=== PATIENT | female | born 1940 | race Caucasian/White ===

== ENCOUNTER 2021-02-19 14:04 | Outpatient (CLI) | payer MEDICARE, OTHER, SELFPAY ==
[2021-02-19 14:28] LABS: Hematocrit 40.7 % (37.0-47.0); Hemoglobin 13.1 g/dL (12.0-15.0); Mean Corpuscular HGB Conc 32.2 g/dl (32-36); Mean Corpuscular Volume 90.2 fl (80-100); Mean Platelet Volume 9.8 fl (7.4-10.4); Platelet Count Result 305 k/mm3 (150-375); Red Blood Count 4.51 M/mm3 (4.2-5.4); Red Cell Distribution Width 13.5 % (11.5-14.5); White Blood Count 9.6 K/mm3 (4.5-10.0)
[2021-02-19 14:41] LABS: Albumin Level 4.3 g/dL (3.5-5.1); Alkaline Phosphatase 94 U/L (38-126); Anion Gap 5 mmol/L (8-16); Aspartate Amino Transferase 29 U/L (14-36); Bilirubin,Total 0.7 mg/dL (0.2-1.3); Blood Urea Nitrogen 15 mg/dL (7-17); Calcium 9.1 mg/dL (8.4-10.2); Carbon Dioxide 31 mmol/L (22-30); Chloride 102 mmol/L (98-107); Estimated Glomerular Filt Rate > 60; Glucose 90 mg/dL (65-110); Potassium 4.5 mmol/L (3.4-5.0); Sodium 138 mmol/L (137-145)
[2021-02-19 15:46] LABS: Folic Acid 9.5 ng/mL (2.76->20)
[2021-02-19 15:52] LABS: Alanine Aminotransferase < 4 U/L (4-35)
== END 2021-02-19 14:05 | disposition home or self-care (01) ==
PROVIDERS: PCP Physician Assistant; Visit Provider Physician Assistant
DX: R53.83 Other fatigue (principal)
CPT/HCPCS: 36415; 80053; 82607; 82746; 84443; 85027

== ENCOUNTER 2022-01-29 07:16 | Inpatient (IN) | payer MEDICARE, OTHER, SELFPAY ==
[2022-01-29] VITALS (53 sets, daily range): BP systolic 100–127; BP diastolic 47–70; PULSE 68–98; RESP 14–32; TEMP 36.6–36.8; O2SAT 96–100
--- NOTE | ~2022-01-29 | CT_ITS ---
. EXAMINATION: CT biopsy lung w/imaging DATE: 02/03/2022 14:27 INDICATION: Left lung lower lobe nodule. TECHNIQUE: The procedure including the risks, benefits, and alternatives and possibility of chest tub e placement were discussed with the patient. Risks discussed included infection, hemorrhage, and pneu mothorax. The patient understood the risks and agreed to proceed. The patient was placed prone. The skin overlying the left lung was prepped and draped in sterile fashion. Anesthetic was administered with 1% lidocaine subcutaneously. A 19 gauge outer needle was advanced under CT guidance to the lesi on of interest. A 20 gauge core biopsy needle was then used to obtain 3 core biopsy specimens. The ne edle was removed and the entry site was cleaned and dressed. The mA was adjusted according to patient size. Iterative reconstruction technique was employed. The dose-length product was 151.69 mGy-cm. T here were no immediate complications. FINDINGS: CT images demonstrate the outer needle tip adjacent to a 2.6 cm nodule in left lung lower l obe. IMPRESSION: 1. CT-guided core needle biopsy of a nodule in left lung lower lobe. Reviewed, dictated and finalized at location A.
--- NOTE | ~2022-01-29 | XR_ITS ---
EXAMINATION: XR chest 1V portable DATE: 02/03/2022 15:35 INDICATION: Status post left lung biopsy TECHNIQUE: frontal view of the chest was obtained. COMPARISON: 02/03/2022 at 2:19 PM FINDINGS: Persistent masslike opacities in the left lower lung zone and left infrahilar region suspicious for p rimary bronchogenic carcinoma and metastatic disease. Skin folds project over the bilateral mid to lo wer lung zones. No pneumothorax or pleural effusion. Heart size is normal. Right paratracheal widenin g and increased density at the AP window likely related to metastatic mediastinal lymphadenopathy. IMPRESSION: 1. No pneumothorax post percutaneous biopsy of a left lower lobe mass concerning for primary bronchog enic carcinoma. 2. Left infrahilar mass and mediastinal lymphadenopathy suspicious for metastatic disease. Reviewed, dictated and finalized at location A. IMPRESSION: 1. No pneumothorax post percutaneous biopsy of a left lower lobe mass concernin g for primary bronchogenic carcinoma. 2. Left infrahilar mass and mediastinal lymphadenopathy suspicious for metastat ic disease.
--- NOTE | ~2022-01-29 | XR_ITS ---
EXAMINATION: XR chest 1V portable DATE: 02/03/2022 17:39 INDICATION: Status post left lung percutaneous biopsy TECHNIQUE: COMPARISON: Chest radiograph dated 02/03/2022 at 3:23 PM FINDINGS: Mild elevation the left hemidiaphragm. Persistent masslike opacities in the left lower lung zone and left infrahilar region suspicious for primary bronchogenic carcinoma and metastatic disease. Skin fol ds project over the bilateral mid to lower lung zones. No pneumothorax or pleural effusion. Heart siz e is normal. Right paratracheal widening and increased density at the AP window likely related to met astatic mediastinal lymphadenopathy. IMPRESSION: 1. No pneumothorax post percutaneous biopsy of a left lower lobe mass concerning for primary bronchog enic carcinoma. 2. Left infrahilar mass and mediastinal lymphadenopathy suspicious for metastatic disease. Reviewed, dictated and finalized at location A. IMPRESSION: 1. No pneumothorax post percutaneous biopsy of a left lower lobe mass concernin g for primary bronchogenic carcinoma. 2. Left infrahilar mass and mediastinal lymphadenopathy suspicious for metastat ic disease.
--- NOTE | ~2022-01-29 | CT_ITS ---
EXAMINATION: CTA chest PE protocol DATE: 01/31/2022 10:49 CDT INDICATION: Shortness of breath. Chest tightness. TECHNIQUE: Computed tomographic angiography (CTA) of the chest was performed with 100 mL Omnipaque-35 0 intravenous contrast. The dose-length product was 147.58 mGy-cm. Maximum intensity projection 3D-re constructions of the aorta and other arteries were constructed by the technologist on a separate work station. Automated exposure control and iterative reconstruction technique were employed. COMPARISON: CT dated 07/25/2018. FINDINGS: There is a large left hilar/infrahilar soft tissue mass with encasement of the left pulmona ry artery and mainstem bronchus. There is partial if not complete occlusion of the left lower lobe br onchus. There is mediastinal lymphadenopathy involving the right paratracheal and AP window locations . There is a filling defect in right lower lobe segmental and subsegmental pulmonary artery, consiste nt with pulmonary embolism, small thrombus burden. Heart size normal. There is abnormal soft tissue i nvolving the left pulmonary vein, likely tumor invasion. There is a cluster of nodules in the left lo wer lobe, largest measuring 2.8 x 2.0 cm, likely metastatic disease. There are multiple additional sm all nodules in the upper lobes, also likely metastatic disease. No pneumothorax. Trace left pleural e ffusion. The upper abdomen is unremarkable. IMPRESSION: 1. Filling defect in right lower lobe segmental/subsegmental pulmonary artery, consistent with pulmon benson embolism, small thrombus burden. 2: Left lower lobe nodule measuring 2.8 x 2 cm, compatible with bronchogenic carcinoma or metastatic disease. Multiple additional smaller nodules are present in the upper lobes. There is abnormal congl omerate soft tissue involving the left hilum and infrahilar locations as well as the mediastinum, con sistent with metastatic disease. There is soft tissue involving the left pulmonary vein, likely tumor invasion. There is encasement with occlusion of the left lower lobe bronchus and narrowing of the le ft lower lobe pulmonary artery. 3: Small left pleural effusion. Reviewed, dictated and finalized at location A. IMPRESSION: 1. Filling defect in right lower lobe segmental/subsegmental pulmonary artery, consistent with pulmonary embolism, small thrombus burden. 2: Left lower lobe nodule measuring 2.8 x 2 cm, compatible with bronchogenic c arcinoma or metastatic disease. Multiple additional smaller nodules are present in the upper lobes. There is abnormal conglomerate soft tissue involving the l eft hilum and infrahilar locations as well as the mediastinum, consistent with metastatic disease. There is soft tissue involving the left pulmonary vein, lik gilberto tumor invasion. There is encasement with occlusion of the left lower lobe b ronchus and narrowing of the left lower lobe pulmonary artery. 3: Small left pleural effusion.
--- NOTE | ~2022-01-29 | XR_ITS ---
XR chest 1V 02/03/2022 14:24 Indication: Postleft lung biopsy Procedure: AP chest Comparison: Comparison to multiple prior studies sequentially, with oldest reviewed study dated 01/29. Findings: There are masses in the left infrahilar and left lower lobe locations, suspicious for bronc hogenic carcinoma or metastatic disease. No pneumothorax. Heart size normal. There is abnormal soft t issue in the AP window, consistent with mediastinal lymphadenopathy. No acute osseous abnormality. Impression: 1: No pneumothorax identified post biopsy. 2: Left lung masses and mediastinal lymphadenopathy, suspicious for bronchogenic carcinoma and/or met astatic disease. Reviewed, dictated and finalized at location B. Impression: 1: No pneumothorax identified post biopsy. 2: Left lung masses and mediastinal lymphadenopathy, suspicious for bronchogeni c carcinoma and/or metastatic disease.
--- NOTE | ~2022-01-29 | US_ITS ---
US venous doppler [facility] DATE: 01/31/2022 16:11 INDICATION: Pulmonary embolism TECHNIQUE: Real-time and color flow imaging and Doppler analysis of the veins of the lower extremitie s COMPARISON: None FINDINGS: There is spontaneous and phasic flow and normal augmentation and color flow signal and norm al compression of the deep veins of both lower extremities. IMPRESSION: No evidence of deep venous thrombosis of the lower extremities Reviewed, dictated and finalized at Location A. Reviewed, dictated and finalized at location A.
--- NOTE | ~2022-01-29 | XR_ITS ---
XR chest 2V DATE: 01/29/2022 08:21 INDICATION: Shortness of breath TECHNIQUE: AP and lateral chest COMPARISON: 07/25/2018 CT chest FINDINGS: Bilateral hyperinflation, increased retrosternal airspace, relative flattening of the diaph ragm, consistent with COPD. There is patchy consolidation in the left lower lung likely due to pneumonia. Normal heart size. Aortic arch calcification. Osteopenia. IMPRESSION: Patchy infiltrate, left lower lung, likely due to pneumonia COPD Reviewed, dictated and finalized at location B.
--- NOTE | ~2022-01-29 | XR_ITS ---
XR chest 1V portable 01/31/2022 09:00 Indication: Shortness of breath and chest pain Procedure: AP portable chest Comparison: 01/29/2022 Findings: There is a 3.2 cm left infrahilar mass. There is a cluster of nodules in the left lower tho rax. There is atherosclerosis of the aorta. Heart size normal. There is biapical pleural thickening/s carring. Small left pleural effusion versus pleural thickening. Generalized osteopenia. Impression: 1: Left infrahilar mass measuring 3.2 cm with adjacent clustered parenchymal nodules. Follow-up CT ch est recommended. Cannot exclude bronchogenic carcinoma. Reviewed, dictated and finalized at location A. Impression: 1: Left infrahilar mass measuring 3.2 cm with adjacent clustered parenchymal no dules. Follow-up CT chest recommended. Cannot exclude bronchogenic carcinoma.
--- NOTE | ~2022-01-29 | US_ITS ---
EXAMINATION: US carotid duplex BI DATE: 01/31/2022 11:15 INDICATION: Shortness of breath. Orthostatic hypotension. TECHNIQUE: Grayscale, color Doppler, and pulsed Doppler images of the cervical carotid arteries were obtained. The degree of vessel stenosis is placed in one of the following categories: normal, <50%, 5 0-69%, >=70% but less than near-occlusion, near-occlusion, or total occlusion. Note that percent sten osis relative to normal distal artery lumen diameter is indirectly measured from velocity measurement s as described by Evaristo, et al. Radiology 2003; 229:340-346. Notes: Normal: Peak systolic velocity <125 centimeters/sec and no plaque <50%. Peak systolic velocity <125 ( EDV <40; ICA/CCA PSV ratio <2.0; used these factors only a tandem lesions or low cardiac output or co ntralateral disease) 50-69 %: PSV 125-230 (EDV 40-100; ratio 2-4) >= 70% but less than near occlusion: PSV greater than 230 (EDV > 100; ratio> 4.0) Near Occlusion: PSV that is variable; markedly narrowed lumen Occlusion: Absent flow on color/spectral Doppler and no lumen on rick scale. COMPARISON: None. FINDINGS: RIGHT: The right common carotid artery (CCA) peak systolic velocity (PSV) is 83 cm/s. The right internal car otid artery (ICA) PSV is 99 cm/s. The right ICA end-diastolic velocity (EDV) is 24 cm/s. The right IC A/CCA PSV ratio is 1.2. The external carotid artery (ECA) PSV is 116 cm/s. There is antegrade flow in the right vertebral artery. LEFT: The left CCA PSV is 107 cm/s. The left ICA PSV is 89 cm/s. The left ICA EDV is 25 cm/s. The left ICA/ CCA PSV ratio is 0.8. The ECA PSV is 98 cm/s. There is antegrade flow in the left vertebral artery. IMPRESSION: 1. Less than 50% stenosis in the right internal carotid artery by sonographic criteria. 2. Less than 50% stenosis in the left internal carotid artery by sonographic criteria. Reviewed, dictated and finalized at location A. IMPRESSION: 1. Less than 50% stenosis in the right internal carotid artery by sonographic c riteria. 2. Less than 50% stenosis in the left internal carotid artery by sonographic cr volodymyria.
--- NOTE | 2022-01-29 07:41 | ECG_ITS ---
Measurements Intervals [place] Rate: 69 P: 76 AK: 143 QRS: -79 QRSD: 110 T: 55 QT: 389 QTc: 419 Interpretive Statements SINUS RHYTHM RIGHT BUNDLE BRANCH BLOCK LEFT ANTERIOR FASCICULAR BLOCK BASELINE ARTIFACT- AVR, AVL, AVF, V4 ABNORMAL ECG NO PREVIOUS ECG AVAILABLE FOR COMPARISON Electronically Signed On 01-29-2022 8:02:24 CDT by Armani Gonsalves D.O.
--- NOTE | 2022-01-29 07:45 | PC.NURSE ---
Assumed care of pt. at this time. report from TONY Mora
[2022-01-29 08:08] LABS: Basophils Percent Auto 0.3 % (0.2-1.2); Eosinophils Absolute Auto 0.2 K/mm3 (0-0.3); Eosinophils Percent Auto 3.2 % (0-4.4); Hematocrit 31.3 % (37.0-47.0); Hemoglobin 9.8 g/dL (12.0-15.0); Immature Granulocyte Absolute 0.03 K/mm3 (0.00-0.031); Immature Granulocyte Percent A 0.5 % (0-0.5); Lymphocytes Absolute Auto 1.68 K/mm3 (0.9-3.2); Mean Corpuscular HGB Conc 31.3 g/dl (32-36); Mean Corpuscular Hemoglobin 26.6 pg (26-34); Mean Corpuscular Volume 84.8 fl (80-100); Mean Platelet Volume 10.1 fl (7.4-10.4); Monocytes Absolute Auto 0.6 K/mm3 (0.1-0.6); Monocytes Percent Auto 10.3 % (2.6-8.5); Neutrophils Absolute Auto 3.5 K/mm3 (1.3-6.7); Neutrophils Percent Auto 57.7 % (45.5-73.1); Platelet Count Result 302 k/mm3 (150-375); Red Blood Count 3.69 M/mm3 (4.2-5.4); Red Cell Distribution Width 15.9 % (11.5-14.5)
[2022-01-29 08:18] LABS: Alanine Aminotransferase 9 U/L (6-35); Albumin Level 3.2 g/dL (3.5-5.1); Alkaline Phosphatase 62 U/L (38-126); Anion Gap 9 mmol/L (8-16); Aspartate Amino Transferase 31 U/L (14-36); Bilirubin,Total 0.6 mg/dL (0.2-1.3); Blood Urea Nitrogen 7 mg/dL (7-17); Calcium 8.7 mg/dL (8.4-10.2); Carbon Dioxide 21 mmol/L (22-30); Chloride 104 mmol/L (98-107); Estimated CRCL calculation 62 ml/min; Estimated Glomerular Filt Rate > 60; Glucose 93 mg/dL (65-110); Potassium 4.1 mmol/L (3.4-5.0); Sodium 134 mmol/L (137-145)
[2022-01-29 09:28] LABS: NT Pro B Type Natriuretic Pept 362 pg/mL (5-100); Troponin I < 0.012 ng/mL (0.000-0.034)
[2022-01-29 09:58] LABS: SARS-CoV-2 RNA PCR Negative
--- NOTE | 2022-01-29 12:03 | ED.GENADULT ---
HPI - General Adult General Chief complaint: Shortness of Breath/Dyspnea Stated complaint: SOB Time Seen by Provider: 01/29/22 07:52 History of Present Illness HPI narrative: This is an 81-year-old female presenting [facility] for shortness of breath. She went to use the restroom and then while she was on the bathroom she started to have difficulty breathing. Patient does not remember the experience very well and cannot provide very many Details. She was then sent to the ER for further evaluation. Patient has no complaints at this time. She denies fever, chills, chest pain, difficulty breathing, abdominal pain, urinary symptoms or diarrhea. Related Data Allergies Allergy/AdvReac Type Severity Reaction Status Date / Time tramadol AdvReac Intermediate NAUSEA, Verified 09/30/21 14:11 DIFFICULTY BREATHING Review of Systems Review of Systems: CONSTITUTIONAL: Denies night sweats. EYES: No eye pain ENT: Denies rhinorrhea CARDIOVASCULAR: Denies palpitations RESPIRATORY: Denies hemoptysis GASTROINTESTINAL: Denies hematemesis GENITOURINARY: Denies hematuria. SKIN: Denies rash MUSCULOSKELETAL: Denies myalgia. NEUROLOGIC: Denies weakness. PSYCHIATRIC: Denies delusions [facility] Past Medical History Medical History (Updated 01/29/22 @ 12:22 by Raf Loja MD) Anxiety COPD (chronic obstructive pulmonary disease) Other specified depressive episodes Parkinsons disease Social History Social History Smoking status: Former smoker Second hand tobacco smoke exposure: No Smoking end date: 05/10/14 Alcohol intake: never Substance use: never Exam Narrative: APPEARANCE: No apparent distress. Patient is pleasant polite during the interview. She was slightly hard of hearing. Head atraumatic. EYES: PERRLA/EOMI, NOSE: Normal no drainage NECK: Supple, Trachea midline RESPIRATORY: CTAB, No increased work of breathing. No wheezing or rhonchi CARDIOVASCULAR: S1S2 appreciated ABDOMINAL: Soft, nontender, nondistended, MUSCULOSKELETAl: No obvious deformities NEURO: Alert. Moving 4/4 extremities SKIN:: Warm, dry. Normal color PSYCHIATRIC: Normal affect Course Vital Signs Vital signs: Vital Signs Temperature 97.8 F 01/29/22 07:20 Pulse Rate 75 01/29/22 07:20 Respiratory Rate 28 H 01/29/22 07:20 Blood Pressure 127/57 L 01/29/22 07:20 Pulse Oximetry 100 01/29/22 07:20 Oxygen Delivery Room Air 01/29/22 07:20 Temperature 97.8 F 01/29/22 07:20 Pulse Rate 80 01/29/22 10:00 Respiratory Rate 20 01/29/22 10:00 Blood Pressure 105/49 L 01/29/22 08:03 Pulse Oximetry 99 01/29/22 10:00 Oxygen Delivery Room Air 01/29/22 07:24 Medical Decision Making MDM Narrative Medical decision making narrative: this is an 81-year-old female presenting ED from a prison for difficulty breathing. We will do basic lab work including troponins to evaluate for an acute cardiac event. Also we will monitor the patient and see if her symptoms recur. Laboratory showed a hemoglobin of 9.8. This is several points lower than her last hemoglobin over 1 year ago. She has no evidence of bleeding at this time. This can be trended. Basic metabolic panels within acceptable limits. Patient has a minor elevation in her BNP at 362. She does not appear clinically fluid overloaded. COVID was negative. Chest x-ray was significant for a left lower lobe pneumonia. Due to the patient's advanced age and multiple comorbidities she will admit to hospital for IV antibiotics. Differential Diagnosis Differential Diagnosis: Pneumonia, ACS, panic attack Vital Signs Vital Signs: Vital Signs Temperature 97.8 F 01/29/22 07:20 Pulse Rate 75 01/29/22 07:20 Respiratory Rate 28 H 01/29/22 07:20 Blood Pressure 127/57 L 01/29/22 07:20 Pulse Oximetry 100 01/29/22 07:20 Oxygen Delivery Room Air 01/29/22 07:20 Te
--- NOTE | 2022-01-29 14:02 | PM.IMHP ---
H&P: HPI History of Present Illness Date/Time: 01/29/22 14:02 Chief Complaint: Shortness of breath Narrative: This is an 81-year-old female patient who has a history of COPD. She currently is in a rehab facility. The patient denies using oxygen at home. The patient came from the [place] [facility] complaining of shortness of breath. The patient went to the restroom there and while she was sitting in the bathroom she started having breathing problems. The patient was sent to the emergency room to be further evaluated the patient stated that she recalls having oxygen placed on her at the [place] [facility]. Currently she is on room air. She denies any fever, chills, chest pain or abdominal pain. She has no diarrhea. Her H and H is low at 9.8 and 31.3 which is lower than a year ago. Her sodium is slightly low at 134. She was negative for COVID. Chest x-ray was read as patchy infiltrate, left lower lung, likely due to pneumonia, COPD. Patient was started on azithromycin and Rocephin for community-acquired pneumonia. The patient is being admitted to inpatient status on the date of service of 01/29/2022 Review of Systems Review of Systems: See HPI All systems reviewed & are unremarkable except as noted in HPI and below Constitutional: Constitutional: Reports as per HPI and Reports no additional constitutional complaints Eyes: Eyes: Reports as per HPI and Reports no additional eye complaints ENT: Reports system reviewed and no additional complaints, except as documented and Reports Normal hearing present Cardiovascular: Cardiovascular: Reports no additional cardiovascular complaints Respiratory: Respiratory: Reports no additional respiratory complaints and Reports no additional respiratory complaints Gastrointestinal: Gastrointestinal: Reports as per HPI and Reports no additional gastrointestinal complaints Musculoskeletal: Musculoskeletal: Reports no additional musculoskeletal complaints Integumentary/Breasts: Skin/Breast: Reports system reviewed and no additional complaints, except as docu and Reports as per HPI Neurologic: Reports system reviewed and no additional complaints, except as documented, Reports as per HPI and Reports Normal hearing present Psychiatric: Psychiatric: Reports no additional psychiatric complaints and Reports as per HPI Endocrine: Endocrine: Reports no additional endocrine complaints Hematologic/Lymphatic: Hematologic/Lymphatic: Reports no additional hematologic/lymphatic complaints Allergic/Immunologic: Allergic/Immunologic: Reports no additional allergic/immunologic complaints [facility] Past Medical History Medical History (Updated 01/29/22 @ 15:12 by Allie Garcia NP) Anxiety COPD (chronic obstructive pulmonary disease) Depression with anxiety Other specified depressive episodes Parkinsons disease Surgical History Surgical History H/O cataract extraction H/O section H/O: hysterectomy Family History Family History Daughter Throat cancer AA (alcohol abuse) Father Cancer Sibling Cancer Social History Social History (Updated 01/29/22 @ 15:03 by Allie Garcia NP) Social History: The patient is . She had 3 children but 2 . One daughter from throat cancer and 1 son from drowning. She was a [place] . 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 She is currently in a rehab facility. She is not sure of where her surviving son is at this point. She does not have a durable power claim attorney for healthcare. She is a former smoker and does not use any alcohol marijuana or illicit drugs. Code status full code Smoking status: Former smoker Second hand tobacco smoke exposure: No Smoking end date: 05/10/14 Alcohol intake: never Substance use: never Meds Home Medications and Allergies Home Medications
--- NOTE | 2022-01-29 14:47 | PC.NURSE ---
updated pt. family member on pt. status.
[2022-01-29 16:19] LABS: Reticulocyte Hemoglobin Conten 30.6 pg (28.2-35.7); Reticulocyte Percent 1.71 % (0.7-4.3); Reticulocytes Absolute 0.07 B/L (32.2-175.7)
[2022-01-29 16:31] LABS: Lactic Acid Reflex 2.8 mmol/L (0.7-2.0)
--- NOTE | 2022-01-29 16:43 | ADMGEN ---
This patient, Sujatha Marie, was admitted to Medical Room 342-01. Patient/family oriented to hospital policies and general routines including ID bracelet, bed and alarms, visiting hours, pain management, procedures, bathroom and other care routines, personal items, smoking policy, room service/diet, and visiting hours. Information on how to activate the Rapid Response Team has been discussed. Patient/Family are encouraged to report perceived risks to care and to ask questions if they do not understand what they are told or what they should do.
[2022-01-29 16:44] LABS: Transferrin 129 mg/dL (206-381)
[2022-01-29] MEDS: methylPREDNISolone SOD SUCC 40 MG VIAL IV PUSH (17:04)
[2022-01-29 17:46] LABS: Folic Acid 4.3 ng/mL (2.76->20)
[2022-01-29 19:12] LABS: Reflex Lactic Acid Yes or No Add Lactic
[2022-01-29] MEDS: SODIUM BICARBONATE TAB 650 MG TABLET PO (19:20)
[2022-01-29] MEDS: CARBIDOPA/LEVODOPA 25/100 MG TABLET 1 TABLET PO (19:20)
[2022-01-29] MEDS: DICYCLOMINE HCL 10 MG CAPSULE PO (19:20)
[2022-01-29 19:46] LABS: Lactic Acid 1.1 mmol/L (0.7-2.0)
[2022-01-29 19:50] LABS: Iron 50 ug/dL (37-170)
[2022-01-29 19:59] LABS: Percent Iron Saturation 27 % (20-50)
[2022-01-29] MEDS: ALBUTEROL SULFATE NEB 2.5 MG/3 ML INH INHALATION (20:08)
[2022-01-29] MEDS: IPRATROPIUM BR 0.02% INH SOLN 0.5 MG/2.5 ML VIAL INHALATION (20:08)
[2022-01-29] MEDS: LORATADINE 10 MG TABLET PO (20:27)
[2022-01-29] MEDS: MIRTAZAPINE 15 MG TABLET PO (20:31)
[2022-01-30] VITALS (7 sets, daily range): BP systolic 102–120; BP diastolic 45–56; PULSE 60–102; RESP 18–20; TEMP 36.6–36.7; O2SAT 94–98
[2022-01-30] MEDS: methylPREDNISolone SOD SUCC 40 MG VIAL IV PUSH ×2 (00:43→06:43)
--- NOTE | 2022-01-30 02:45 | PCRCNOTE ---
PT STATED AT 1999 ON 01/29 THAT SHE DID NOT WANT WOKEN UP FOR 0200 TREATMENT. PT ADVISED TO CALL IF IN NEED OF TREATMENT. RN INFORMED.
[2022-01-30 05:37] LABS: Hematocrit 29.8 % (37.0-47.0); Hemoglobin 9.7 g/dL (12.0-15.0); Immature Granulocyte Absolute 0.02 K/mm3 (0.00-0.031); Immature Granulocyte Percent A 0.6 % (0-0.5); Lymphocytes Absolute Auto 0.58 K/mm3 (0.9-3.2); Lymphocytes Percent Auto 16.7 % (18.3-44.2); Mean Corpuscular HGB Conc 32.6 g/dl (32-36); Mean Corpuscular Hemoglobin 26.9 pg (26-34); Mean Corpuscular Volume 82.8 fl (80-100); Mean Platelet Volume 9.6 fl (7.4-10.4); Monocytes Absolute Auto 0.1 K/mm3 (0.1-0.6); Monocytes Percent Auto 1.7 % (2.6-8.5); Neutrophils Absolute Auto 2.8 K/mm3 (1.3-6.7); Platelet Count Result 319 k/mm3 (150-375); Red Cell Distribution Width 15.9 % (11.5-14.5); White Blood Count 3.5 K/mm3 (4.5-10.0)
[2022-01-30 05:50] LABS: Alanine Aminotransferase 11 U/L (6-35); Albumin Level 3.4 g/dL (3.5-5.1); Alkaline Phosphatase 61 U/L (38-126); Anion Gap 10 mmol/L (8-16); Aspartate Amino Transferase 29 U/L (14-36); Bilirubin,Total 0.5 mg/dL (0.2-1.3); Blood Urea Nitrogen 9 mg/dL (7-17); CRP 0.9 mg/dL (<1.0); Calcium 8.7 mg/dL (8.4-10.2); Carbon Dioxide 20 mmol/L (22-30); Chloride 101 mmol/L (98-107); Estimated CRCL calculation 76 ml/min; Estimated Glomerular Filt Rate > 60; Glucose 140 mg/dL (65-110); Lactate Dehydrogenase 219 U/L (120-246); Magnesium 1.8 mg/dL (1.6-2.3); Potassium 4.2 mmol/L (3.4-5.0); Sodium 131 mmol/L (137-145)
[2022-01-30 06:26] LABS: Thyroid Stimulating Hormone Reflex 0.959 uIU/mL (0.465-4.68)
[2022-01-30] MEDS: ALBUTEROL SULFATE NEB 2.5 MG/3 ML INH INHALATION ×2 (07:55→15:04)
[2022-01-30] MEDS: IPRATROPIUM BR 0.02% INH SOLN 0.5 MG/2.5 ML VIAL INHALATION (07:55)
[2022-01-30] MEDS: ENOXAPARIN 40 MG/0.4 ML SYRINGE SUB-Q (09:16)
[2022-01-30] MEDS: PANTOPRAZOLE 40 MG TABLET PO (09:16)
[2022-01-30] MEDS: DICYCLOMINE HCL 10 MG CAPSULE PO ×2 (09:16→16:39)
[2022-01-30] MEDS: FERROUS SULFATE 324 MG TABLET PO (09:16)
[2022-01-30] MEDS: CARBIDOPA/LEVODOPA 25/100 MG TABLET 1 TABLET PO ×3 (09:16→16:39)
[2022-01-30] MEDS: LORATADINE 10 MG TABLET PO ×2 (09:17→19:50)
[2022-01-30] MEDS: FLUTICASONE PROPIONATE 0.05% NA SPR 16 GM BTL (*BKC) 2 SPRAY NASAL (09:17)
[2022-01-30] MEDS: ESCITALOPRAM OXALATE 5 MG TABLET PO (09:17)
[2022-01-30] MEDS: SODIUM BICARBONATE TAB 650 MG TABLET PO ×2 (09:17→16:39)
--- NOTE | 2022-01-30 09:45 | PM.IMPN ---
Progress Note: A&P Assessment and Plan (1) Pneumonia: Code(s): J18.9 - Pneumonia, unspecified organism Status: Acute Assessment and Plan: -Chest xray indicated PNA and COPD -Continue Azithromycin Rocephin were started -COVID was negative -duo nebs -sputum culture has been ordered -Trend chest xray -Supplemental oxygen, titrate to maintain SPO2 >90% (2) Anemia: Code(s): D64.9 - Anemia, unspecified Status: Acute Assessment and Plan: -H/H 9.7/29.8 -anemia panel iron 50, TIBC 182, % sat 29, Transferrin 129, Ferritin 192, B12 267, Folate 4.3 -No supplementation indicated -Continue ferrous sulfate 325mg PO Daily -check stool for occult blood (3) COPD (chronic obstructive pulmonary disease): Code(s): J44.9 - Chronic obstructive pulmonary disease, unspecified Status: Chronic Assessment and Plan: -Chest xray indicated COPD -continue with duo nebulizer treatments -continue with Solu-Medrol, decrease to 40mg IV Q12H -Azithromycin and Ceftriaxone continued -Sputum culture ordered -Could be in acute exacerbation (4) Depression with anxiety: Code(s): F41.8 - Other specified anxiety disorders Status: Acute Assessment and Plan: -continue with alprazolam -continue with home medications once her medication reconciliation has been completed. (5) Parkinsons disease: Code(s): G20 - Parkinson's disease Status: Chronic Assessment and Plan: -continue with carbidopa levodopa (6) Anxiety: Code(s): F41.9 - Anxiety disorder, unspecified Status: Chronic Assessment and Plan: -continue with alprazolam Time Spent With Patient Time with patient: Greater than 35 minutes Subjective Date/time seen: 01/30/22944 Interval history: 01/30/22944 Patient is really down today. She is really upset because she has been doing so good at rehab. She also stated that the breathing treatments are causing her to be a little nauseous because they stink she says. She is doing ok currently, She denies any cough, chest pain, weakness, fever, sweats or chills. She seems to be doing well today will hope that she would be able to DC tomorrow or Wednesday. 01/29/22? 14:02 This is an 81-year-old female patient who has a history of COPD.? She currently is in a rehab facility.? The patient denies using oxygen at home.? The patient came from the shelter complaining of shortness of breath.? The patient went to the restroom there and while she was sitting in the bathroom she started having breathing problems.? The patient was sent to the emergency room to be further evaluated the patient stated that she recalls having oxygen placed on her at the shelter.? Currently she is on room air.? She denies any fever, chills, chest pain or abdominal pain.? She has no diarrhea.? Her H and H is low at 9.8 and 31.3 which is lower than a year ago.? Her sodium is slightly low at 134.? She was negative for COVID.? Chest x-ray was read as patchy infiltrate, left lower lung, likely due to pneumonia, COPD.? Patient was started on azithromycin and Rocephin for community-acquired pneumonia.? The patient is being admitted to inpatient status on the date of service of 01/29/2022 Review of Systems Review of Systems: All systems reviewed & are unremarkable except as noted in HPI and below Exam Const: General: cooperative, comfortable, no acute distress, well developed, alert, awake and Physically active Nutritional Appearance: thin Orientation/consciousness: oriented to person, oriented to place, oriented to time and patient oriented x3 Limitations: no limitations HENMT: Head: normal to inspection, No palpable skull fracture present, normocephalic and atraumatic Ears: hearing grossly normal bilaterally, external ears normal and TM's normal bilaterally General nose exam: Normal external nose present and Normal n
[2022-01-30] MEDS: ALPRAZolam (*CRX) 0.25 MG TABLET PO (19:50)
[2022-01-30] MEDS: MIRTAZAPINE 15 MG TABLET PO (19:50)
[2022-01-31] VITALS (11 sets, daily range): BP systolic 86–119; BP diastolic 52–71; PULSE 68–108; RESP 16–28; TEMP 36.1–36.7; O2SAT 92–97
--- NOTE | 2022-01-31 | ECHO_ITS ---
Patient Info Name: Sujatha Marie Age: 81 years : 1940 Gender: Female Ht: 65 in Wt: 119 lbs BSA: 1.57 m2 HR: 101 bpm BP: 110 / 52 mmHg Heart Rhythm: Sinus Rhythm, Tachycardia Technical Quality: Fair Exam Date: 01/31/2022 2:38 PM Exam Location: [facility] Pulmonary Exam Room: 342 Patient Status: Inpatient Admit Date: 01/29/2022 Staff Ordering Physician: Osito Lloyd Production Operations Inspector: Comfort Taylor RDCS Attending Provider: Chase Altman MD Referring Physician: Gabino GRIMALDO; Exam Type: CA echo doppler color flow Study Info Indications - PE SOB Complete two-dimensional, color flow and Doppler transthoracic echocardiogram is performed. Summary 1. Complete two-dimensional, color flow and Doppler transthoracic echocardiogram is performed. 2. Normal left ventricular size and thickness with hyperdynamic contractility of all segments. Ejection fraction greater than 75%. Diastolic dysfunction is present. 3. Normal right ventricular size and contractility. 4. There is mild tricuspid valve regurgitation. 5. Mild pulmonary hypertension, estimated pulmonary arterial systolic pressure is 42 mmHg. 6. There is mild aortic atherosclerosis of the abdominal aorta. 7. Sinus tachycardia. Left Ventricle Left ventricular chamber dimension is normal. Left ventricular systolic function is hyperdynamic, estimated at >70%. There is no increased left ventricular wall thickness. Left ventricular septal wall motion is normal. The left ventricular diastolic function is abnormal. Right Ventricle Right ventricular chamber dimension is normal. Right ventricular systolic function is normal. Left Atria Left atrial chamber dimension is normal. Right Atria Right atrial chamber dimension is normal. Aortic Valve The aortic valve is trileaflet. There is no aortic valve sclerosis. There is no aortic valve stenosis. There is no aortic valve regurgitation. Pulmonic Valve The pulmonic valve is normal. There is no pulmonic valve stenosis. There is no pulmonic regurgitation. Mitral Valve The mitral valve has normal leaflets. There is no mitral valve stenosis. There is no mitral valve regurgitation. Tricuspid Valve The tricuspid valve leaflets are normal. There is no significant tricuspid valve stenosis. There is mild tricuspid valve regurgitation. Mild pulmonary hypertension, estimated pulmonary arterial systolic pressure is 42 mmHg. Pericardium/Pleural The pericardium appears normal. There is no pericardial effusion. Inferior Vena Cava Normal inferior vena cava with >50% collapse upon inspiration consistent with Empty right atrial pressure, 10 mmHg. Aorta The aortic root size at the sinus of Valsalva is normal. The prox ascending aorta size is normal. There is mild aortic atherosclerosis of the abdominal aorta. Left Ventricular Outflow Tract Name Value Normal LVOT 2D LVOT Diameter 2.0 cm LVOT Doppler LVOT Peak Gradient 6 mmHg LVOT Mean Gradient 3 mmHg LVOT VTI 19 cm
[2022-01-31 05:58] LABS: Basophils Percent Auto 0.1 % (0.2-1.2); Eosinophils Percent Auto 0.4 % (0-4.4); Hematocrit 28.5 % (37.0-47.0); Hemoglobin 9.1 g/dL (12.0-15.0); Immature Granulocyte Absolute 0.03 K/mm3 (0.00-0.031); Immature Granulocyte Percent A 0.4 % (0-0.5); Lymphocytes Absolute Auto 1.88 K/mm3 (0.9-3.2); Lymphocytes Percent Auto 23.1 % (18.3-44.2); Mean Corpuscular HGB Conc 31.9 g/dl (32-36); Mean Corpuscular Hemoglobin 26.5 pg (26-34); Mean Corpuscular Volume 83.1 fl (80-100); Mean Platelet Volume 9.7 fl (7.4-10.4); Monocytes Absolute Auto 0.8 K/mm3 (0.1-0.6); Monocytes Percent Auto 10.1 % (2.6-8.5); Neutrophils Absolute Auto 5.4 K/mm3 (1.3-6.7); Neutrophils Percent Auto 65.9 % (45.5-73.1); Platelet Count Result 314 k/mm3 (150-375); Red Blood Count 3.43 M/mm3 (4.2-5.4); Red Cell Distribution Width 16.5 % (11.5-14.5); White Blood Count 8.1 K/mm3 (4.5-10.0)
[2022-01-31 06:13] LABS: Alanine Aminotransferase 11 U/L (6-35); Albumin Level 3.1 g/dL (3.5-5.1); Alkaline Phosphatase 54 U/L (38-126); Anion Gap 9 mmol/L (8-16); Aspartate Amino Transferase 30 U/L (14-36); Bilirubin,Total 0.3 mg/dL (0.2-1.3); Blood Urea Nitrogen 10 mg/dL (7-17); Calcium 8.5 mg/dL (8.4-10.2); Carbon Dioxide 24 mmol/L (22-30); Chloride 99 mmol/L (98-107); Estimated CRCL calculation 62 ml/min; Estimated Glomerular Filt Rate > 60; Glucose 89 mg/dL (65-110); Magnesium 1.9 mg/dL (1.6-2.3); Potassium 3.2 mmol/L (3.4-5.0); Sodium 132 mmol/L (137-145)
--- NOTE | 2022-01-31 08:30 | PCRCNOTE ---
Upon entering room pt is short of breath sitting in her chair. HR is around 100 and pt is complaining of chest pressure in the middle of her chest. No wheezes appreciated at this time. Diminished breath sounds. RN informed and will call MD to seek order for EKG and to clarify orders for breathing treatments (atrovent is on hold and albuterol prn is available however would like MD to be aware of current vitals and pt complaint before given). RN will inform COMMERCIAL CARPET INSTALLER of new orders and wishes of MD.
--- NOTE | 2022-01-31 08:37 | ECG_ITS ---
Measurements Intervals [place] Rate: 91 P: 89 TN: 148 QRS: -76 QRSD: 117 T: 75 QT: 363 QTc: 448 Interpretive Statements SINUS RHYTHM INCOMPLETE RIGHT BUNDLE BRANCH BLOCK LEFT ANTERIOR FASCICULAR BLOCK BASELINE WANDER- I, II, AVR, AVL ABNORMAL ECG COMPARED TO ECG 01/29/2022 07:31:23 NO SIGNIFICANT CHANGES Electronically Signed On 01-31-2022 11:14:35 CDT by Armani Gonsalves D.O.
[2022-01-31] MEDS: CEFDINIR 300 MG CAPSULE PO ×2 (09:30→20:15)
[2022-01-31] MEDS: CARBIDOPA/LEVODOPA 25/100 MG TABLET 1 TABLET PO ×3 (09:30→16:38)
[2022-01-31] MEDS: ALPRAZolam (*CRX) 0.25 MG TABLET PO (09:30)
[2022-01-31] MEDS: LORATADINE 10 MG TABLET PO ×2 (09:31→20:15)
[2022-01-31] MEDS: ESCITALOPRAM OXALATE 5 MG TABLET PO (09:31)
[2022-01-31] MEDS: DICYCLOMINE HCL 10 MG CAPSULE PO ×2 (09:31→16:38)
[2022-01-31] MEDS: predniSONE 20 MG TABLET 40 MG PO (09:31)
[2022-01-31] MEDS: PANTOPRAZOLE 40 MG TABLET PO (09:31)
[2022-01-31] MEDS: FERROUS SULFATE 324 MG TABLET PO (09:32)
[2022-01-31] MEDS: FLUTICASONE PROPIONATE 0.05% NA SPR 16 GM BTL (*BKC) 2 SPRAY NASAL (09:32)
[2022-01-31] MEDS: SODIUM BICARBONATE TAB 650 MG TABLET PO ×2 (09:32→16:38)
[2022-01-31] MEDS: AZITHROMYCIN 250 MG TABLET 500 MG PO (09:32)
[2022-01-31 09:39] LABS: Troponin I 0.015 ng/mL (0.000-0.034)
[2022-01-31] MEDS: ENOXAPARIN 40 MG/0.4 ML SYRINGE SUB-Q (09:49)
[2022-01-31] MEDS: POTASSIUM CHLORIDE 20 MEQ TABLET 40 MEQ PO (09:49)
--- NOTE | 2022-01-31 10:00 | PM.IMPN ---
Progress Note: A&P Assessment and Plan (1) Pulmonary embolism: Code(s): I26.99 - Other pulmonary embolism without acute cor pulmonale Status: Acute Assessment and Plan: CTA found pulmonary embolism, with small clot thrombus burden Lovenox BID 55mg Change to oral medications when appropriate Continues to be on room air Echo ordered and pending Seems stable (2) Pulmonary nodules/lesions, multiple: Code(s): R91.8 - Other nonspecific abnormal finding of lung field Status: Acute Assessment and Plan: CTA found many nodules Oncology consulted CA 19-1 and 125 ordered Angiocarcinoma ordered as well Not sure what the primary source is Consider biopsy (3) Pneumonia: Code(s): J18.9 - Pneumonia, unspecified organism Status: Acute Assessment and Plan: -Chest xray indicated PNA and COPD -Continue Azithromycin Rocephin -COVID was negative -Changed to Xopenex -sputum culture has been ordered -Trend chest xray -Supplemental oxygen, titrate to maintain SPO2 >90% (4) Orthostatic hypotension: Code(s): I95.1 - Orthostatic hypotension Status: Acute Assessment and Plan: Patient is positives for orthostatic hypotension Start midodrine 5mg PO TID Trend BP Adjust therapy as indicated (5) Anemia: Code(s): D64.9 - Anemia, unspecified Status: Acute Assessment and Plan: -H/H 9.1/28.5 -anemia panel iron 50, TIBC 182, % sat 29, Transferrin 129, Ferritin 192, B12 267, Folate 4.3 -No supplementation indicated -Continue ferrous sulfate 325mg PO Daily -check stool for occult blood (6) COPD (chronic obstructive pulmonary disease): Code(s): J44.9 - Chronic obstructive pulmonary disease, unspecified Status: Chronic Assessment and Plan: -Chest xray indicated COPD -continue with duo nebulizer treatments -continue with Solu-Medrol, decrease to 40mg IV Q12H -Azithromycin and Ceftriaxone continued -Sputum culture ordered -Could be in acute exacerbation (7) Depression with anxiety: Code(s): F41.8 - Other specified anxiety disorders Status: Acute Assessment and Plan: -continue with alprazolam -continue with home medications once her medication reconciliation has been completed. (8) Parkinsons disease: Code(s): G20 - Parkinson's disease Status: Chronic Assessment and Plan: -continue with carbidopa levodopa Plan Patient complaining of dizziness and lightheadedness. Carotid doppler negative Positive orthostatic BP Time Spent With Patient Time with patient: Greater than 35 minutes Subjective Date/time seen: 01/31/22 10:00 Interval history: 01/31/22 1000 Patient did have some issues overnight. It was reported that the patient was having chest pressure and shortness of breath. Patient was getting up and getting in the chair however she was started having chest pressure and had them walk her to the bathroom she thought she had the bathroom. However she started having chest compressions and hyperventilating. Chest x-ray did note some new lesions masses or her lungs. CTA was performed and did show a new PE. It was noted that her legs were swollen last night. she currently denies nausea, vomiting, diarrhea, constipation, sweats, fevers, chills. 01/30/22 0945 Patient is really down today. She is really upset because she has been doing so good at rehab. She also stated that the breathing treatments are causing her to be a little nauseous because they stink she says. She is doing ok currently, She denies any cough, chest pain, weakness, fever, sweats or chills. She seems to be doing well today will hope that she would be able to DC tomorrow or Wednesday. 01/29/22? 14:02 This is an 81-year-old female patient who has a history of COPD.? She currently is in a rehab facility.? The patient denies
[2022-01-31] MEDS: MIDODRINE HCL 2.5 MG TABLET 5 MG PO (11:41)
[2022-01-31 12:58] LABS: Carcinoembryonic Antigen 19.1 ng/mL (0.0-3.0)
[2022-01-31] MEDS: ENOXAPARIN 60 MG/0.6 ML SYRINGE 55 MG SUB-Q (16:39)
[2022-01-31 19:34] LABS: Albumin 3.7 g/dL (3.8-4.8); Alpha 1 Globulin 0.4 g/dL (0.2-0.3); Alpha 2 Globulin 0.7 g/dL (0.5-0.9); Beta 1 Globulin 0.4 g/dL (0.4-0.6); Gamma Globulin 0.9 g/dL (0.8-1.7); Protein, Total 6.3 g/dL (6.1-8.1)
[2022-01-31] MEDS: MIRTAZAPINE 15 MG TABLET PO (20:15)
[2022-02-01] VITALS (10 sets, daily range): BP systolic 103–126; BP diastolic 55–65; PULSE 84–104; RESP 16–22; TEMP 36.3–36.7; O2SAT 97–98
[2022-02-01] MEDS: ENOXAPARIN 60 MG/0.6 ML SYRINGE 55 MG SUB-Q ×2 (03:11→17:20)
[2022-02-01 05:33] LABS: Eosinophils Percent Auto 0.1 % (0-4.4); Hematocrit 28.3 % (37.0-47.0); Immature Granulocyte Absolute 0.03 K/mm3 (0.00-0.031); Immature Granulocyte Percent A 0.4 % (0-0.5); Lymphocytes Absolute Auto 1.52 K/mm3 (0.9-3.2); Lymphocytes Percent Auto 20.7 % (18.3-44.2); Mean Corpuscular HGB Conc 31.8 g/dl (32-36); Mean Corpuscular Hemoglobin 26.9 pg (26-34); Mean Corpuscular Volume 84.5 fl (80-100); Mean Platelet Volume 10.5 fl (7.4-10.4); Monocytes Absolute Auto 0.8 K/mm3 (0.1-0.6); Monocytes Percent Auto 11.4 % (2.6-8.5); Neutrophils Absolute Auto 4.9 K/mm3 (1.3-6.7); Neutrophils Percent Auto 67.4 % (45.5-73.1); Platelet Count Result 316 k/mm3 (150-375); Red Blood Count 3.35 M/mm3 (4.2-5.4); Red Cell Distribution Width 16.6 % (11.5-14.5); White Blood Count 7.3 K/mm3 (4.5-10.0)
[2022-02-01 05:47] LABS: Alanine Aminotransferase 10 U/L (6-35); Albumin Level 3.1 g/dL (3.5-5.1); Alkaline Phosphatase 55 U/L (38-126); Anion Gap 9 mmol/L (8-16); Aspartate Amino Transferase 28 U/L (14-36); Bilirubin,Total 0.4 mg/dL (0.2-1.3); Blood Urea Nitrogen 10 mg/dL (7-17); Calcium 8.5 mg/dL (8.4-10.2); Carbon Dioxide 24 mmol/L (22-30); Chloride 99 mmol/L (98-107); Estimated CRCL calculation 76 ml/min; Estimated Glomerular Filt Rate > 60; Glucose 87 mg/dL (65-110); Magnesium 1.9 mg/dL (1.6-2.3); Potassium 3.2 mmol/L (3.4-5.0); Sodium 132 mmol/L (137-145)
[2022-02-01] MEDS: FLUTICASONE PROPIONATE 0.05% NA SPR 16 GM BTL (*BKC) 2 SPRAY NASAL (09:11)
[2022-02-01] MEDS: CEFDINIR 300 MG CAPSULE PO ×2 (09:11→21:03)
[2022-02-01] MEDS: predniSONE 20 MG TABLET 40 MG PO (09:11)
[2022-02-01] MEDS: AZITHROMYCIN 250 MG TABLET 500 MG PO (09:11)
[2022-02-01] MEDS: ESCITALOPRAM OXALATE 5 MG TABLET PO (09:11)
[2022-02-01] MEDS: DICYCLOMINE HCL 10 MG CAPSULE PO ×2 (09:11→17:20)
[2022-02-01] MEDS: SODIUM BICARBONATE TAB 650 MG TABLET PO ×2 (09:12→17:20)
[2022-02-01] MEDS: FERROUS SULFATE 324 MG TABLET PO (09:12)
[2022-02-01] MEDS: PANTOPRAZOLE 40 MG TABLET PO (09:12)
[2022-02-01] MEDS: LORATADINE 10 MG TABLET PO ×2 (09:12→21:03)
[2022-02-01] MEDS: CARBIDOPA/LEVODOPA 25/100 MG TABLET 1 TABLET PO ×3 (09:12→17:20)
--- NOTE | 2022-02-01 11:15 | PM.IMPN ---
Progress Note: A&P Assessment and Plan (1) Pulmonary embolism: Code(s): I26.99 - Other pulmonary embolism without acute cor pulmonale Status: Acute Assessment and Plan: CTA found pulmonary embolism, with small clot thrombus burden Lovenox BID 55mg Change to oral medications when appropriate Continues to be on room air Echo EF of 75% with diastolic dysfunction Seems stable (2) Pulmonary nodules/lesions, multiple: Code(s): R91.8 - Other nonspecific abnormal finding of lung field Status: Acute Assessment and Plan: CTA found many nodules Oncology consulted CA 19-1 and 125 ordered Carcinoembryonic Antigen 19.1 Not sure what the primary source is Consider biopsy (3) Pneumonia: Code(s): J18.9 - Pneumonia, unspecified organism Status: Acute Assessment and Plan: -Chest xray indicated PNA and COPD -Continue Azithromycin Rocephin -COVID was negative -Changed to Xopenex -sputum culture has been ordered -Trend chest xray -Supplemental oxygen, titrate to maintain SPO2 >90% (4) Orthostatic hypotension: Code(s): I95.1 - Orthostatic hypotension Status: Acute Assessment and Plan: Patient is positives for orthostatic hypotension Start midodrine 5mg PO TID Carotid negative Trend BP Adjust therapy as indicated (5) Anemia: Code(s): D64.9 - Anemia, unspecified Status: Acute Assessment and Plan: -H/H 9.0/28.3 -anemia panel iron 50, TIBC 182, % sat 29, Transferrin 129, Ferritin 192, B12 267, Folate 4.3 -No supplementation indicated -Continue ferrous sulfate 325mg PO Daily -check stool for occult blood (6) COPD (chronic obstructive pulmonary disease): Code(s): J44.9 - Chronic obstructive pulmonary disease, unspecified Status: Chronic Assessment and Plan: -Chest xray indicated COPD -continue with duo nebulizer treatments -continue with Solu-Medrol, decrease to 40mg PO -Azithromycin and Ceftriaxone continued -Sputum culture ordered -Could be in acute exacerbation (7) Depression with anxiety: Code(s): F41.8 - Other specified anxiety disorders Status: Acute Assessment and Plan: -continue with alprazolam -continue with home medications once her medication reconciliation has been completed. (8) Parkinsons disease: Code(s): G20 - Parkinson's disease Status: Chronic Assessment and Plan: -continue with carbidopa levodopa -Wonder if this can be increased -Neurology consult (9) Anxiety: Code(s): F41.9 - Anxiety disorder, unspecified Status: Acute Assessment and Plan: She stated that she is trembling more than normal Relates this to anxiety Xanax on board from home Continue to trend mood Plan Going to keep patient on Lovenox until decision about biopsy can be made Time Spent With Patient Time with patient: Greater than 35 minutes Subjective Date/time seen: 02/01/221114 Interval history: 02/01/221114 Patient is really concerned about going back to rehab. She does state that she feels okay today. She denies any shortness of breath, nausea, vomiting, diarrhea, constipation, weakness or fatigue. She is currently aware that she has those nodules on her lungs. Awaiting Oncology to see her about possible biopsy. She also also make sure that she goes home on oral anticoagulation said that she continue to be at her rehab facility to her. She also is concerned about her diet as she stated that she wants to be able to eat which she wants and not be restricted to a heart healthy diet. Currently patient appears to be well. 01/31/22 1000 Patient did have some issues overnight. It was reported that the patient was having chest pressure and shortness of breath. Patient was getting up and getting in the chair however she was started having c
--- NOTE | 2022-02-01 11:15 | P.PNIM_ITS ---
Progress Note: A&P Assessment and Plan (1) Pulmonary embolism: Code(s): I26.99 - Other pulmonary embolism without acute cor pulmonale Status: Acute Assessment and Plan: * CTA found pulmonary embolism, with small clot thrombus burden * Lovenox BID 55mg * Change to oral medications when appropriate * Continues to be on room air * Echo EF of 75% with diastolic dysfunction * Seems stable (2) Pulmonary nodules/lesions, multiple: Code(s): R91.8 - Other nonspecific abnormal finding of lung field Status: Acute Assessment and Plan: * CTA found many nodules * Oncology consulted * CA 19-1 and 125 ordered * Carcinoembryonic Antigen 19.1 * Not sure what the primary source is * Consider biopsy (3) Pneumonia: Code(s): J18.9 - Pneumonia, unspecified organism Status: Acute Assessment and Plan: -Chest xray indicated PNA and COPD -Continue Azithromycin Rocephin -COVID was negative -Changed to Xopenex -sputum culture has been ordered -Trend chest xray -Supplemental oxygen, titrate to maintain SPO2 >90% (4) Orthostatic hypotension: Code(s): I95.1 - Orthostatic hypotension Status: Acute Assessment and Plan: * Patient is positives for orthostatic hypotension * Start midodrine 5mg PO TID * Carotid negative * Trend BP * Adjust therapy as indicated (5) Anemia: Code(s): D64.9 - Anemia, unspecified Status: Acute Assessment and Plan: -H/H 9.0/28.3 -anemia panel iron 50, TIBC 182, % sat 29, Transferrin 129, Ferritin 192, B12 267, Folate 4.3 -No supplementation indicated -Continue ferrous sulfate 325mg PO Daily -check stool for occult blood (6) COPD (chronic obstructive pulmonary disease): Code(s): J44.9 - Chronic obstructive pulmonary disease, unspecified Status: Chronic Assessment and Plan: -Chest xray indicated COPD -continue with duo nebulizer treatments -continue with Solu-Medrol, decrease to 40mg PO -Azithromycin and Ceftriaxone continued -Sputum culture ordered -Could be in acute exacerbation (7) Depression with anxiety: Code(s): F41.8 - Other specified anxiety disorders Status: Acute Assessment and Plan: -continue with alprazolam -continue with home medications once her medication reconciliation has been completed. (8) Parkinsons disease: Code(s): G20 - Parkinson's disease Status: Chronic Assessment and Plan: -continue with carbidopa levodopa -Wonder if this can be increased -Neurology consult (9) Anxiety: Code(s): F41.9 - Anxiety disorder, unspecified Status: Acute Assessment and Plan: * She stated that she is trembling more than normal * Relates this to anxiety * Xanax on board from home * Continue to trend mood Plan Going to keep patient on Lovenox until decision about biopsy can be made Time Spent With Patient Time with patient: Greater than 35 minutes Subjective Date/time seen: 02/01/221114 Interval history: 02/01/221114 Patient is really concerned about going back to rehab. She does state that she feels okay today. She denies any shortness of breath, nausea, vomiting, diarrhea, constipation, weakness or fatigue. She is currently aware spencer
[2022-02-01] MEDS: MIRTAZAPINE 15 MG TABLET PO (21:03)
[2022-02-01] MEDS: ALPRAZolam (*CRX) 0.25 MG TABLET PO (21:17)
[2022-02-02] VITALS (10 sets, daily range): BP systolic 110–141; BP diastolic 54–77; PULSE 82–100; RESP 16–20; TEMP 36.1–36.6; O2SAT 99–100
[2022-02-02] MEDS: ENOXAPARIN 60 MG/0.6 ML SYRINGE 55 MG SUB-Q ×2 (05:01→17:03)
[2022-02-02 06:07] LABS: Basophils Percent Auto 0.2 % (0.2-1.2); Eosinophils Percent Auto 0.2 % (0-4.4); Hematocrit 28.4 % (37.0-47.0); Hemoglobin 9.1 g/dL (12.0-15.0); Immature Granulocyte Absolute 0.01 K/mm3 (0.00-0.031); Immature Granulocyte Percent A 0.2 % (0-0.5); Lymphocytes Absolute Auto 1.36 K/mm3 (0.9-3.2); Lymphocytes Percent Auto 24.5 % (18.3-44.2); Mean Corpuscular Volume 84.3 fl (80-100); Mean Platelet Volume 10.5 fl (7.4-10.4); Monocytes Absolute Auto 0.6 K/mm3 (0.1-0.6); Monocytes Percent Auto 9.9 % (2.6-8.5); Neutrophils Absolute Auto 3.6 K/mm3 (1.3-6.7); Platelet Count Result 290 k/mm3 (150-375); Red Blood Count 3.37 M/mm3 (4.2-5.4); Red Cell Distribution Width 16.9 % (11.5-14.5); White Blood Count 5.6 K/mm3 (4.5-10.0)
[2022-02-02 06:19] LABS: Alanine Aminotransferase 12 U/L (6-35); Albumin Level 3.1 g/dL (3.5-5.1); Alkaline Phosphatase 50 U/L (38-126); Anion Gap 7 mmol/L (8-16); Aspartate Amino Transferase 24 U/L (14-36); Bilirubin,Total 0.5 mg/dL (0.2-1.3); Blood Urea Nitrogen 9 mg/dL (7-17); Calcium 8.6 mg/dL (8.4-10.2); Carbon Dioxide 26 mmol/L (22-30); Chloride 101 mmol/L (98-107); Estimated CRCL calculation 62 ml/min; Estimated Glomerular Filt Rate > 60; Glucose 84 mg/dL (65-110); Sodium 134 mmol/L (137-145)
[2022-02-02] MEDS: FERROUS SULFATE 324 MG TABLET PO (08:50)
[2022-02-02] MEDS: PANTOPRAZOLE 40 MG TABLET PO (08:50)
[2022-02-02] MEDS: SODIUM BICARBONATE TAB 650 MG TABLET PO ×2 (08:50→17:04)
[2022-02-02] MEDS: ESCITALOPRAM OXALATE 5 MG TABLET PO (08:50)
[2022-02-02] MEDS: DICYCLOMINE HCL 10 MG CAPSULE PO ×2 (08:50→17:03)
[2022-02-02] MEDS: FLUTICASONE PROPIONATE 0.05% NA SPR 16 GM BTL (*BKC) 2 SPRAY NASAL (08:50)
[2022-02-02] MEDS: LORATADINE 10 MG TABLET PO ×2 (08:51→20:35)
[2022-02-02] MEDS: predniSONE 20 MG TABLET 40 MG PO (08:51)
[2022-02-02] MEDS: CEFDINIR 300 MG CAPSULE PO ×2 (08:51→20:35)
[2022-02-02] MEDS: CARBIDOPA/LEVODOPA 25/100 MG TABLET 1 TABLET PO ×3 (08:51→17:03)
[2022-02-02] MEDS: ALPRAZolam (*CRX) 0.25 MG TABLET PO ×3 (10:23→20:35)
--- NOTE | 2022-02-02 11:00 | P.PNIM_ITS ---
Progress Note: A&P Assessment and Plan (1) Pulmonary embolism: Code(s): I26.99 - Other pulmonary embolism without acute cor pulmonale Status: Acute Assessment and Plan: * CTA found pulmonary embolism, with small clot thrombus burden * Lovenox BID 55mg * Change to oral medications when appropriate * Continues to be on room air * Echo EF of 75% with diastolic dysfunction * Seems stable (2) Pulmonary nodules/lesions, multiple: Code(s): R91.8 - Other nonspecific abnormal finding of lung field Status: Acute Assessment and Plan: * CTA found many nodules * Oncology consulted * CA 19-1 and 125 ordered * Carcinoembryonic Antigen 19.1 * Not sure what the primary source is * Consider biopsy (3) Pneumonia: Code(s): J18.9 - Pneumonia, unspecified organism Status: Acute Assessment and Plan: -Chest xray indicated PNA and COPD -Continue Azithromycin Rocephin -COVID was negative -Changed to Xopenex -sputum culture has been ordered -Trend chest xray -Supplemental oxygen, titrate to maintain SPO2 >90% (4) Orthostatic hypotension: Code(s): I95.1 - Orthostatic hypotension Status: Acute Assessment and Plan: * Patient is positives for orthostatic hypotension * Start midodrine 5mg PO TID * Carotid negative * Trend BP * Adjust therapy as indicated (5) Anemia: Code(s): D64.9 - Anemia, unspecified Status: Acute Assessment and Plan: -H/H 9.1/28.4 -anemia panel iron 50, TIBC 182, % sat 29, Transferrin 129, Ferritin 192, B12 267, Folate 4.3 -No supplementation indicated -Continue ferrous sulfate 325mg PO Daily -check stool for occult blood (6) COPD (chronic obstructive pulmonary disease): Code(s): J44.9 - Chronic obstructive pulmonary disease, unspecified Status: Chronic Assessment and Plan: -Chest xray indicated COPD -continue with duo nebulizer treatments -continue with Solu-Medrol, decrease to 40mg PO -Azithromycin and Ceftriaxone continued -Sputum culture ordered -Could be in acute exacerbation (7) Depression with anxiety: Code(s): F41.8 - Other specified anxiety disorders Status: Acute Assessment and Plan: -continue with alprazolam -continue with home medications once her medication reconciliation has been completed. -Seems to be exacerbated by her being here and not being able to work out at the facility (8) Parkinsons disease: Code(s): G20 - Parkinson's disease Status: Chronic Assessment and Plan: -continue with carbidopa levodopa, increased to QID -Neurology consult (9) Anxiety: Code(s): F41.9 - Anxiety disorder, unspecified Status: Acute Assessment and Plan: * She stated that she is trembling more than normal * Relates this to anxiety * Xanax on board from home * Continue to trend mood * Seems to be also anxious about not having her belongs that she wants. Plan Going to keep patient on Lovenox until decision about biopsy can be made Time Spent With Patient Time with patient: Greater than 35 minutes Subjective Date/time seen: 02/02/22 1100 Interval history: 02/02/221099 Patient was not doing so good when he went in there today. She seemed to be
--- NOTE | 2022-02-02 11:00 | PM.IMPN ---
Progress Note: A&P Assessment and Plan (1) Pulmonary embolism: Code(s): I26.99 - Other pulmonary embolism without acute cor pulmonale Status: Acute Assessment and Plan: CTA found pulmonary embolism, with small clot thrombus burden Lovenox BID 55mg Change to oral medications when appropriate Continues to be on room air Echo EF of 75% with diastolic dysfunction Seems stable (2) Pulmonary nodules/lesions, multiple: Code(s): R91.8 - Other nonspecific abnormal finding of lung field Status: Acute Assessment and Plan: CTA found many nodules Oncology consulted CA 19-1 and 125 ordered Carcinoembryonic Antigen 19.1 Not sure what the primary source is Consider biopsy (3) Pneumonia: Code(s): J18.9 - Pneumonia, unspecified organism Status: Acute Assessment and Plan: -Chest xray indicated PNA and COPD -Continue Azithromycin Rocephin -COVID was negative -Changed to Xopenex -sputum culture has been ordered -Trend chest xray -Supplemental oxygen, titrate to maintain SPO2 >90% (4) Orthostatic hypotension: Code(s): I95.1 - Orthostatic hypotension Status: Acute Assessment and Plan: Patient is positives for orthostatic hypotension Start midodrine 5mg PO TID Carotid negative Trend BP Adjust therapy as indicated (5) Anemia: Code(s): D64.9 - Anemia, unspecified Status: Acute Assessment and Plan: -H/H 9.1/28.4 -anemia panel iron 50, TIBC 182, % sat 29, Transferrin 129, Ferritin 192, B12 267, Folate 4.3 -No supplementation indicated -Continue ferrous sulfate 325mg PO Daily -check stool for occult blood (6) COPD (chronic obstructive pulmonary disease): Code(s): J44.9 - Chronic obstructive pulmonary disease, unspecified Status: Chronic Assessment and Plan: -Chest xray indicated COPD -continue with duo nebulizer treatments -continue with Solu-Medrol, decrease to 40mg PO -Azithromycin and Ceftriaxone continued -Sputum culture ordered -Could be in acute exacerbation (7) Depression with anxiety: Code(s): F41.8 - Other specified anxiety disorders Status: Acute Assessment and Plan: -continue with alprazolam -continue with home medications once her medication reconciliation has been completed. -Seems to be exacerbated by her being here and not being able to work out at the facility (8) Parkinsons disease: Code(s): G20 - Parkinson's disease Status: Chronic Assessment and Plan: -continue with carbidopa levodopa, increased to QID -Neurology consult (9) Anxiety: Code(s): F41.9 - Anxiety disorder, unspecified Status: Acute Assessment and Plan: She stated that she is trembling more than normal Relates this to anxiety Xanax on board from home Continue to trend mood Seems to be also anxious about not having her belongs that she wants. Plan Going to keep patient on Lovenox until decision about biopsy can be made Time Spent With Patient Time with patient: Greater than 35 minutes Subjective Date/time seen: 02/02/22 1100 Interval history: 02/02/22 1100 Patient was not doing so good when he went in there today. She seemed to be panicking. She stated that she was having back pain that was going up her neck and into her ears making her feel like she was nauseated. She also was having moments of shortness of breath. She denies any constipation or diarrhea. She did talk to me about being scared currently. She was given a Xanax, and things are getting better. Otherwise she is doing well with getting up and down. It also seemed that her routine was kind of scattered today which made her upset as well. I gave her a back rub and talked to her and she seemed to get better. 02/01/22 1115 Patient is really concerned about going back to rehab. She
--- NOTE | 2022-02-02 11:19 | WPDNEURCNPN ---
Assessment and Plan Assessment and plan (1) Parkinsons disease: Code(s): G20 - Parkinson's disease Status: Chronic Assessment and Plan: Ms. Marie is an 81 year old female with Parkinson's Disease, admitted due to respiratory distress. Continues to have tremor in bilateral hands which seems to be somewhat disabling. She has been on the same dose of Sinemet for several years. She is not sure about timing of wearing off. No concern for medication induced dyskinesia. - Increase Sinemet 25/100mg to QID - Follow-up in [facility] in 1-2 months Consult date: 02/02/22 Time Seen: 11:19 Reason for consult: Parkinson's Disease HPI: Sujatha Marie is a 81 year old female with a history of Parkinson's Disease, COPD, and anxiety who is currently admitted for respiratory issues. She presented from rehab where she developed shortness of breath. She was taken to [facility] where CXR showed left lower infiltration concerning for possible pneumonia. She was COVID negative. Started on antibiotics. Later in admission she was found to have small pulmonary embolism as well as pulmonary nodules on Chest CT. She is being treated with Lovenox. Echocardiogram showed diastolic dysfunction. EKG showed sinus rhythm. Patient felt lightheaded during admission so carotid doppler was ordered which was normal. She did have positive orthostatic vitals. Neurology consulted to optimize her Parkinson's Disease treatment. She takes Sinemet 25/100mg TID. She is not sure of any wearing off of the Sinemet, but she feels that it is not doing enough for her tremor. She was diagnosed with PD 7 years ago and has been on Sinemet since then. She was last seen in Neurology clinic about a year ago and continued on Sinemet TID. Review of Systems Constitutional: Constitutional: Reports as per HPI Eyes: Eyes: Reports no additional eye complaints ENT: Reports system reviewed and no additional complaints, except as documented and Denies Normal hearing present Cardiovascular: Cardiovascular: Reports no additional cardiovascular complaints Respiratory: Respiratory: Reports dyspnea Gastrointestinal: Gastrointestinal: Reports no additional gastrointestinal complaints Genitourinary: Genitourinary: Reports no additional female genitourinary complaints Musculoskeletal: Musculoskeletal: Reports no additional musculoskeletal complaints Integumentary/Breasts: Skin/Breast: Reports system reviewed and no additional complaints, except as docu Neurologic: Reports as per HPI Psychiatric: Psychiatric: Reports anxiety and Reports depression PMFSH Past Medical History Medical History Anxiety COPD (chronic obstructive pulmonary disease) Depression with anxiety Other specified depressive episodes Parkinsons disease Surgical History Surgical History H/O cataract extraction H/O section H/O: hysterectomy Family History Family History Daughter Throat cancer AA (alcohol abuse) Father Cancer Sibling Cancer Social History Social History Social History: The patient is . She had 3 children but 2 . One daughter from throat cancer and 1 son from drowning. She was a [employer] . 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 She is currently in a rehab facility. She is not sure of where her surviving son is at this point. She does not have a durable power [employer] attorney for healthcare. She is a former smoker and does not use any alcohol marijuana or illicit drugs. Code status full code Smoking packs per day: 1 Smoking cigarettes per day: 20.0 Smoking status: Former smoker Second hand tobacco smoke exposure: No Smoking end date: 05/10/14 Alcohol intake: never Substance us
--- NOTE | 2022-02-02 11:33 | PCOTNOTE ---
Attempted to see patient this am, however patient refused. Pt reported being extremely cold and I just took a pill for my anxiety. I hate to get out of these covers.
--- NOTE | 2022-02-02 18:58 | PDONCCN ---
HPI - Date of Consult Date/Time: 02/02/22 18:58 Requesting Physician: Chase Altman MD Primary Care Provider: Boni Sam PA-C - Consult Narrative Reason for consult: Lung mass Narrative: Sujatha Marie is a 81 year old female with history of COPD and remote history of smoking came into the hospital with shortness of breath. She has the rehab facility resident at this time while awaiting for gallbladder surgery. She has lost almost 20 lb weight in last several months. She does have some cough without any hemoptysis. She has been eating poorly. CTA chest showed 2.8 x 2 cm left lower lobe pulmonary nodule compatible with bronchogenic carcinoma with multiple additional small nodules are present in the upper lobes. There was pulmonary embolism involving the right lower lobe segmental pulmonary artery. Small pleural effusion was also noted. She denies any previous history of malignancy. Review of Systems - Review of Systems All systems reviewed & are unremarkable except as noted in HPI and bel - Neurologic Reports system reviewed and no additional complaints, except as documented, Denies hearing normal [facility] Medical History: Medical History (Last Reviewed 02/02/22 @ 11:45 by Francia Landeros MD) Anxiety COPD (chronic obstructive pulmonary disease) Depression with anxiety Other specified depressive episodes Parkinsons disease Surgical History: Surgical History (Last Reviewed 02/02/22 @ 11:45 by Francia Landeros MD) H/O cataract extraction H/O section H/O: hysterectomy Family History: Family History (Last Reviewed 02/02/22 @ 11:45 by Francia Landeros MD) Daughter Throat cancer AA (alcohol abuse) Father Cancer Sibling Cancer - Social History Social History: Social History (Last Reviewed 02/02/22 @ 11:45 by Francia Landeros MD) Alcohol Use: Alcohol intake: never Substance Use: Substance use: never Substance use type: does not use Others: Spiritual care concerns: No Smoking Status: Smoking status: Former smoker Second hand tobacco smoke exposure: No Smoking end date: 05/10/14 Approximate Smoking End Date: 2014 Smoking Pack-years: Smoking packs per day: 1 Smoking cigarettes per day: 20.0 Exam - Vital Signs Vital Signs - 24 hr 02/01/22 19:23 02/01/22 19:42 02/01/22 19:53 Temperature 36.4 C Pulse Rate 96 96 91 Respiratory Rate 18 16 16 Blood Pressure 106/65 Pulse Oximetry 98 Oxygen Delivery 02/02/22 05:01 02/02/22 08:25 02/02/22 08:36 Temperature 36.1 C L Pulse Rate 99 89 91 Respiratory Rate 20 16 16 Blood Pressure 141/77 H Pulse Oximetry 99 Oxygen Delivery 02/02/22 08:00 02/02/22 14:00 02/02/22 14:41 Temperature 36.4 C L Pulse Rate 100 82 Respiratory Rate 18 16 Blood Pressure 122/61 Pulse Oximetry 99 Oxygen Delivery Room Air 02/02/22 14:46 Temperature Pulse Rate 85 Respiratory Rate 16 Blood Pressure Pulse Oximetry Oxygen Delivery - Exam HEENT: EOMI, PERRLA Neck: supple. No: JVD Lungs: clear to auscultation, normal air movement Heart: no murmurs, gallops, or rubs, regular rhythm, regular rate Abdomen: abdomen soft, non-distended, normal bowel sounds Extremities: normal pulses Integumentary: no abnormalities Neurological: normal speech Psychological: mental status NL, mood NL - Lab Results Laboratory Last Values WBC 5.6 K/mm3 (4.5-10.0) 02/02/22 05:35 RBC 3.37 M/mm3 (4.2-5.4) L 02/02/22 05:35 Hgb 9.1 g/dL (12.0-15.0) L 02/02/22 05:35 Hct 28.4 % (37.0-47.0) L 02/02/22 05:35 MCV 84.3 fl (80-100) 02/02/22 05:35 MCH 27.0 pg (26-34) 02/02/22 05:35 MCHC 32.0 g/dl (32-36) 02/02/22 05:35 RDW 16.9 % (11.5-14.5) H 02/02/22 05:35 Plt Count 290 k/mm3 (150-375) 02/02/22 05:35 MPV 10.5 fl (7.4-10.4) H 02/02/22 05:35 Immature Gran % (Auto) 0.2 % (0-0.5) 02/02/22
[2022-02-02 19:51] LABS: Immature Reticulocyte Fraction 6.2 % (3.0-15.9); Reticulocyte Hemoglobin Conten 31.4 pg (28.2-35.7); Reticulocyte Percent 3.68 % (0.7-4.3); Reticulocytes Absolute 0.12 B/L (32.2-175.7)
[2022-02-02 20:03] LABS: Lactate Dehydrogenase 185 U/L (120-246)
[2022-02-02 20:04] LABS: Iron 66 ug/dL (37-170)
[2022-02-02] MEDS: MIRTAZAPINE 15 MG TABLET PO (20:35)
[2022-02-02 21:09] LABS: Folic Acid 4.4 ng/mL (2.76->20)
[2022-02-02 21:45] LABS: Percent Iron Saturation 38 % (20-50)
[2022-02-03] VITALS (10 sets, daily range): BP systolic 114–126; BP diastolic 55–68; PULSE 74–113; RESP 18–20; TEMP 36.7–37.1; O2SAT 97–100
--- NOTE | 2022-02-03 02:17 | PCRCNOTE ---
Pt asleep and resting comfortably. RT asked RN if pt should be woken up for treatment. RN informed RT not to wake pt due to her giving her xanax and she needs rest for her procedure tomorrow. RT agreed pt needs rest for procedure tomorrow.
[2022-02-03 05:39] LABS: Eosinophils Percent Auto 0.4 % (0-4.4); Hematocrit 27.8 % (37.0-47.0); Hemoglobin 8.7 g/dL (12.0-15.0); Immature Granulocyte Absolute 0.02 K/mm3 (0.00-0.031); Immature Granulocyte Percent A 0.4 % (0-0.5); Mean Corpuscular HGB Conc 31.3 g/dl (32-36); Mean Corpuscular Hemoglobin 26.5 pg (26-34); Mean Corpuscular Volume 84.8 fl (80-100); Monocytes Absolute Auto 0.5 K/mm3 (0.1-0.6); Monocytes Percent Auto 9.7 % (2.6-8.5); Neutrophils Absolute Auto 3.2 K/mm3 (1.3-6.7); Neutrophils Percent Auto 62.5 % (45.5-73.1); Platelet Count Result 271 k/mm3 (150-375); Red Blood Count 3.28 M/mm3 (4.2-5.4); Red Cell Distribution Width 16.9 % (11.5-14.5); White Blood Count 5.2 K/mm3 (4.5-10.0)
[2022-02-03 05:58] LABS: Alanine Aminotransferase 12 U/L (6-35); Alkaline Phosphatase 56 U/L (38-126); Anion Gap 5 mmol/L (8-16); Aspartate Amino Transferase 24 U/L (14-36); Bilirubin,Total 0.4 mg/dL (0.2-1.3); Blood Urea Nitrogen 11 mg/dL (7-17); Calcium 8.2 mg/dL (8.4-10.2); Carbon Dioxide 29 mmol/L (22-30); Chloride 101 mmol/L (98-107); Estimated CRCL calculation 62 ml/min; Estimated Glomerular Filt Rate > 60; Glucose 89 mg/dL (65-110); Potassium 2.8 mmol/L (3.4-5.0); Sodium 135 mmol/L (137-145)
[2022-02-03] MEDS: POTASSIUM CHLORIDE 20 MEQ TABLET 40 MEQ PO (06:12)
--- NOTE | 2022-02-03 06:25 | PCRCNOTE ---
RN called @ 0615 stating that the pt would like a breathing treatment. Levalbuterol over-ridden and administered by RT.
[2022-02-03] MEDS: DICYCLOMINE HCL 10 MG CAPSULE PO ×2 (08:37→17:36)
[2022-02-03] MEDS: predniSONE 20 MG TABLET 40 MG PO (08:37)
[2022-02-03] MEDS: ALPRAZolam (*CRX) 0.25 MG TABLET PO ×3 (08:37→20:20)
[2022-02-03] MEDS: CARBIDOPA/LEVODOPA 25/100 MG TABLET 1 TABLET PO ×4 (08:37→20:20)
[2022-02-03] MEDS: FERROUS SULFATE 324 MG TABLET PO (08:37)
[2022-02-03] MEDS: SODIUM BICARBONATE TAB 650 MG TABLET PO ×2 (08:37→17:36)
[2022-02-03] MEDS: PANTOPRAZOLE 40 MG TABLET PO (08:37)
[2022-02-03] MEDS: ESCITALOPRAM OXALATE 5 MG TABLET PO (08:37)
[2022-02-03] MEDS: CEFDINIR 300 MG CAPSULE PO ×2 (08:37→20:20)
[2022-02-03] MEDS: FLUTICASONE PROPIONATE 0.05% NA SPR 16 GM BTL (*BKC) 2 SPRAY NASAL (08:38)
[2022-02-03] MEDS: LORATADINE 10 MG TABLET PO ×2 (08:38→20:20)
--- NOTE | 2022-02-03 08:52 | PC.NURSE ---
Per Ct request. PT/INR prior to biopsy.
[2022-02-03 10:00] LABS: Eosinophils Percent Auto 0.7 % (0-4.4); Hematocrit 30.1 % (37.0-47.0); Hemoglobin 9.4 g/dL (12.0-15.0); Immature Granulocyte Absolute 0.02 K/mm3 (0.00-0.031); Immature Granulocyte Percent A 0.3 % (0-0.5); Lymphocytes Absolute Auto 1.74 K/mm3 (0.9-3.2); Lymphocytes Percent Auto 28.8 % (18.3-44.2); Mean Corpuscular HGB Conc 31.2 g/dl (32-36); Mean Corpuscular Hemoglobin 26.6 pg (26-34); Mean Corpuscular Volume 85.3 fl (80-100); Mean Platelet Volume 9.9 fl (7.4-10.4); Monocytes Absolute Auto 0.6 K/mm3 (0.1-0.6); Monocytes Percent Auto 9.6 % (2.6-8.5); Neutrophils Absolute Auto 3.7 K/mm3 (1.3-6.7); Neutrophils Percent Auto 60.6 % (45.5-73.1); Platelet Count Result 290 k/mm3 (150-375); Red Blood Count 3.53 M/mm3 (4.2-5.4); Red Cell Distribution Width 17.2 % (11.5-14.5)
[2022-02-03 10:19] LABS: Prothrombin Time 13.2 Seconds (11.1-14.7)
[2022-02-03 10:20] LABS: Partial Thromboplastin Time 23.7 SECONDS (22.3-36.8)
--- NOTE | 2022-02-03 11:00 | P.PNIM_ITS ---
Progress Note: A&P Assessment and Plan (1) Pulmonary embolism: Code(s): I26.99 - Other pulmonary embolism without acute cor pulmonale Status: Acute Assessment and Plan: * CTA found pulmonary embolism, with small clot thrombus burden * Lovenox BID 55mg, currently on hold for biopsy * Can restart anticoagulation, was thinking Xarelto, at 1700 02/04/22 * Change to oral medications when appropriate * Continues to be on room air * Echo EF of 75% with diastolic dysfunction * Seems stable (2) Pulmonary nodules/lesions, multiple: Code(s): R91.8 - Other nonspecific abnormal finding of lung field Status: Acute Assessment and Plan: * CTA found many nodules * Oncology consulted * CA 19-1 and 125 ordered * Carcinoembryonic Antigen 19.1 * Not sure what the primary source is * Biopsy scheduled for today (3) Pneumonia: Code(s): J18.9 - Pneumonia, unspecified organism Status: Acute Assessment and Plan: -Chest xray indicated PNA and COPD -Continue Cefdinir until 02/06/22 -COVID was negative -Changed to Xopenex -sputum culture has been ordered, still not collected -Trend chest xray -Supplemental oxygen, titrate to maintain SPO2 >90% (4) Orthostatic hypotension: Code(s): I95.1 - Orthostatic hypotension Status: Acute Assessment and Plan: * Patient is positives for orthostatic hypotension * Start midodrine 5mg PO TID * Carotid negative * Trend BP * Adjust therapy as indicated (5) Anemia: Code(s): D64.9 - Anemia, unspecified Status: Acute Assessment and Plan: -H/H 8.7/27.0 -anemia panel iron 50, TIBC 182, % sat 29, Transferrin 129, Ferritin 192, B12 267, Folate 4.3 -No supplementation indicated -Continue ferrous sulfate 325mg PO Daily -check stool for occult blood (6) COPD (chronic obstructive pulmonary disease): Code(s): J44.9 - Chronic obstructive pulmonary disease, unspecified Status: Chronic Assessment and Plan: -Chest xray indicated COPD -continue with duo nebulizer treatments -Prednisone completed, received 5 days -Azith completed, cefdinir continued -Sputum culture ordered, not collected -Could be in acute exacerbation (7) Depression with anxiety: Code(s): F41.8 - Other specified anxiety disorders Status: Acute Assessment and Plan: -continue with alprazolam -continue with home medications once her medication reconciliation has been completed. -Seems to be exacerbated by her being here and not being able to work out at the facility (8) Parkinsons disease: Code(s): G20 - Parkinson's disease Status: Chronic Assessment and Plan: -continue with carbidopa levodopa, increased to QID -Neurology consult (9) Anxiety: Code(s): F41.9 - Anxiety disorder, unspecified Status: Acute Assessment and Plan: * She stated that she is trembling more than normal * Relates this to anxiety * Xanax on board from home * Continue to trend mood * Seems to be also anxious about not having her belongs that she wants. Time Spent With Patient Time with patient: Greater than 35 minutes Subjective Date/time seen: 02/03/22 1100 Interval history: 02/03/221099 Patient is doing ok. She is complaining of a
--- NOTE | 2022-02-03 11:00 | PM.IMPN ---
Progress Note: A&P Assessment and Plan (1) Pulmonary embolism: Code(s): I26.99 - Other pulmonary embolism without acute cor pulmonale Status: Acute Assessment and Plan: CTA found pulmonary embolism, with small clot thrombus burden Lovenox BID 55mg, currently on hold for biopsy Can restart anticoagulation, was thinking Xarelto, at 1700 02/04/22 Change to oral medications when appropriate Continues to be on room air Echo EF of 75% with diastolic dysfunction Seems stable (2) Pulmonary nodules/lesions, multiple: Code(s): R91.8 - Other nonspecific abnormal finding of lung field Status: Acute Assessment and Plan: CTA found many nodules Oncology consulted CA 19-1 and 125 ordered Carcinoembryonic Antigen 19.1 Not sure what the primary source is Biopsy scheduled for today (3) Pneumonia: Code(s): J18.9 - Pneumonia, unspecified organism Status: Acute Assessment and Plan: -Chest xray indicated PNA and COPD -Continue Cefdinir until 02/06/22 -COVID was negative -Changed to Xopenex -sputum culture has been ordered, still not collected -Trend chest xray -Supplemental oxygen, titrate to maintain SPO2 >90% (4) Orthostatic hypotension: Code(s): I95.1 - Orthostatic hypotension Status: Acute Assessment and Plan: Patient is positives for orthostatic hypotension Start midodrine 5mg PO TID Carotid negative Trend BP Adjust therapy as indicated (5) Anemia: Code(s): D64.9 - Anemia, unspecified Status: Acute Assessment and Plan: -H/H 8.7/27.0 -anemia panel iron 50, TIBC 182, % sat 29, Transferrin 129, Ferritin 192, B12 267, Folate 4.3 -No supplementation indicated -Continue ferrous sulfate 325mg PO Daily -check stool for occult blood (6) COPD (chronic obstructive pulmonary disease): Code(s): J44.9 - Chronic obstructive pulmonary disease, unspecified Status: Chronic Assessment and Plan: -Chest xray indicated COPD -continue with duo nebulizer treatments -Prednisone completed, received 5 days -Azith completed, cefdinir continued -Sputum culture ordered, not collected -Could be in acute exacerbation (7) Depression with anxiety: Code(s): F41.8 - Other specified anxiety disorders Status: Acute Assessment and Plan: -continue with alprazolam -continue with home medications once her medication reconciliation has been completed. -Seems to be exacerbated by her being here and not being able to work out at the facility (8) Parkinsons disease: Code(s): G20 - Parkinson's disease Status: Chronic Assessment and Plan: -continue with carbidopa levodopa, increased to QID -Neurology consult (9) Anxiety: Code(s): F41.9 - Anxiety disorder, unspecified Status: Acute Assessment and Plan: She stated that she is trembling more than normal Relates this to anxiety Xanax on board from home Continue to trend mood Seems to be also anxious about not having her belongs that she wants. Time Spent With Patient Time with patient: Greater than 35 minutes Subjective Date/time seen: 02/03/221099 Interval history: 02/03/221099 Patient is doing ok. She is complaining of a headache. She denies any chest pain, shortness of breath , nausea, vomiting, diarrhea, constipation, weakness. She also stated that she could not give me a good review of systems since she has not gotten out of bed yet. Biopsy is scheduled for today. Patient did state that she is constipated. Miralax and senna started 02/02/221099 Patient was not doing so good when he went in there today. She seemed to be panicking. She stated that she was having back pain that was going up her neck and into her ears making her feel like she was nauseated. She also was having moments of shortness of breath. She
[2022-02-03] MEDS: ACETAMINOPHEN 500 MG TABLET 1000 MG PO (12:15)
[2022-02-03] MEDS: polyethylene glycoL 3350 17 GM POWD.PACK PO (17:37)
[2022-02-03] MEDS: MIRTAZAPINE 15 MG TABLET PO (20:20)
[2022-02-03] MEDS: SENNOSIDES 8.6 MG TABLET PO (20:20)
[2022-02-03 21:53] LABS: CA-125 93 U/mL (<35)
[2022-02-04] VITALS (12 sets, daily range): BP systolic 113–120; BP diastolic 50–70; PULSE 74–95; RESP 16–20; TEMP 36.4–36.7; O2SAT 98–100
[2022-02-04 00:27] LABS: Total Protein/Creatinine Ratio 276 mg/g creat (24-184)
[2022-02-04 05:08] LABS: Eosinophils Absolute Auto 0.1 K/mm3 (0-0.3); Eosinophils Percent Auto 0.9 % (0-4.4); Hematocrit 28.3 % (37.0-47.0); Hemoglobin 8.9 g/dL (12.0-15.0); Immature Granulocyte Absolute 0.02 K/mm3 (0.00-0.031); Immature Granulocyte Percent A 0.4 % (0-0.5); Lymphocytes Absolute Auto 1.51 K/mm3 (0.9-3.2); Lymphocytes Percent Auto 28.5 % (18.3-44.2); Mean Corpuscular HGB Conc 31.4 g/dl (32-36); Mean Corpuscular Hemoglobin 26.9 pg (26-34); Mean Corpuscular Volume 85.5 fl (80-100); Mean Platelet Volume 9.6 fl (7.4-10.4); Monocytes Absolute Auto 0.5 K/mm3 (0.1-0.6); Monocytes Percent Auto 9.4 % (2.6-8.5); Neutrophils Absolute Auto 3.2 K/mm3 (1.3-6.7); Neutrophils Percent Auto 60.8 % (45.5-73.1); Platelet Count Result 253 k/mm3 (150-375); Red Blood Count 3.31 M/mm3 (4.2-5.4); Red Cell Distribution Width 17.1 % (11.5-14.5); White Blood Count 5.3 K/mm3 (4.5-10.0)
[2022-02-04 05:26] LABS: Alanine Aminotransferase 11 U/L (6-35); Alkaline Phosphatase 58 U/L (38-126); Anion Gap 10 mmol/L (8-16); Aspartate Amino Transferase 28 U/L (14-36); Bilirubin,Total 0.5 mg/dL (0.2-1.3); Blood Urea Nitrogen 9 mg/dL (7-17); Calcium 8.5 mg/dL (8.4-10.2); Carbon Dioxide 25 mmol/L (22-30); Chloride 101 mmol/L (98-107); Estimated CRCL calculation 76 ml/min; Estimated Glomerular Filt Rate > 60; Glucose 90 mg/dL (65-110); Potassium 2.8 mmol/L (3.4-5.0); Sodium 136 mmol/L (137-145)
[2022-02-04] MEDS: POTASSIUM CHLORIDE 20 MEQ TABLET 40 MEQ PO (05:52)
[2022-02-04] MEDS: SODIUM BICARBONATE TAB 650 MG TABLET PO ×2 (09:10→17:13)
[2022-02-04] MEDS: ESCITALOPRAM OXALATE 5 MG TABLET PO (09:10)
[2022-02-04] MEDS: DICYCLOMINE HCL 10 MG CAPSULE PO ×2 (09:10→17:13)
[2022-02-04] MEDS: CEFDINIR 300 MG CAPSULE PO ×2 (09:10→20:29)
[2022-02-04] MEDS: LORATADINE 10 MG TABLET PO ×2 (09:10→20:28)
[2022-02-04] MEDS: FLUTICASONE PROPIONATE 0.05% NA SPR 16 GM BTL (*BKC) 2 SPRAY NASAL (09:11)
[2022-02-04] MEDS: PANTOPRAZOLE 40 MG TABLET PO (09:11)
[2022-02-04] MEDS: FERROUS SULFATE 324 MG TABLET PO (09:11)
[2022-02-04] MEDS: CARBIDOPA/LEVODOPA 25/100 MG TABLET 1 TABLET PO ×4 (09:11→20:28)
--- NOTE | 2022-02-04 09:20 | ECG_ITS ---
Measurements Intervals [place] Rate: 81 P: 84 MT: 135 QRS: -72 QRSD: 118 T: 69 QT: 378 QTc: 439 Interpretive Statements SINUS RHYTHM ATRIAL PREMATURE COMPLEX INCOMPLETE RIGHT BUNDLE BRANCH BLOCK LEFT ANTERIOR FASCICULAR BLOCK BASELINE WANDER- V6 ABNORMAL ECG COMPARED TO ECG 01/31/2022 09:13:00 NO SIGNIFICANT CHANGES Electronically Signed On 02-04-2022 12:09:43 CDT by Armani Gonsalves D.O.
[2022-02-04] MEDS: POTASSIUM CHLORIDE INJ 40 MEQ in SODIUM CHLORIDE 0.9% IV 500 ML 130 MEQ IVPB (10:23)
--- NOTE | 2022-02-04 17:21 | P.PNIM_ITS ---
Progress Note: A&P Assessment and Plan (1) Pulmonary embolism: Code(s): I26.99 - Other pulmonary embolism without acute cor pulmonale Status: Acute Assessment and Plan: * CTA found pulmonary embolism, with small clot thrombus burden * Lovenox BID 55mg, currently on hold for biopsy x 24 hours. * 02/05/22 start Eliquis 10 mg PO BID x 7 days, then 5 mg BID for 3-6 months or until stopped. 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 * Continues to be on room air * Echo EF of 75% with diastolic dysfunction, mild pulmonary hypertension. * Monitor respiratory status. (2) Pulmonary nodules/lesions, multiple: Code(s): R91.8 - Other nonspecific abnormal finding of lung field Status: Acute Assessment and Plan: * CTA chest with left lower lobe nodule measuring 2.8 x 2 cm, compatible with bronchogenic carcinoma or metastatic disease; muultiple additional smaller nodules present in the upper lobes; abnormal conglomerate soft tissue involving the left hilum and infrahilar locations as well as the mediastinum, consistent with metastatic disease, soft tissue involving the left pulmonary vein, likely tumor invasion; encasement with occlusion of the left lower lobe bronchus and narrowing of the left lower lobe pulmonary artery. * Oncology consulted and appreciate recommendations. * CA 19-9 pending, carcinogenic antigen elevated 19.1, and CA-125 elevated 93 * 02/03/22 s/p lung biopsy, follow-up chest x-ray negative for pneumothorax. (3) Pneumonia: Qualifiers: Pneumonia type: due to unspecified organism Laterality: left Lung location: lower lobe of lung Qualified Code(s): J18.9 - Pneumonia, unspecified organism Code(s): J18.9 - Pneumonia, unspecified organism Status: Acute Assessment and Plan: * Chest xray left lower lobe patchy opacities concerning for pneumonia, no leukocytosis * presumed postobstructive pneumonia. * Received Azithromycin 01/29 to 02/01/22, Rocephin 1 gram Q24H 01/29-01/30 and transitioned to cefdinir 300 mg BID PO 01/31 to 02/05 * COVID was negative * Xopenex Q6 hours * sputum culture not collected at this time. * Supplemental oxygen, titrate to maintain SPO2 >90%, wean as tolerated. (4) Orthostatic hypotension: Code(s): I95.1 - Orthostatic hypotension Status: Acute Assessment and Plan: * Patient is positives for orthostatic hypotension 01/31/22, presumed autonomic dysfunction * Continue midodrine 5mg PO TID * Carotid US negative * Trend BP * Adjust therapy as indicated (5) Hypokalemia: Code(s): E87.6 - Hypokalemia Status: Acute Assessment and Plan: K2.8 today 02/04. She has recieved multiple doses of PO KCl * Telemetry ordered but unavailable. EKG without u-waves or peaked t-waves * Given 40 mEQ PO x1 and KCl 40 mEQ IVPB x1. * Repeat K 4.0 at 1500 * Magnesium level 2.2 * ?related to sodium bicarb supplements. (6) Anemia: Qualifiers: Anemia type: B12 deficiency Code(s): D64.9 - Anemia, unspecified Status: Acute Assessment and Plan: Multifactorial, B12 low and +metastatic disease. * H/H 8.9/28.3, baseline Hgb 8-9 mg/dL this admission, 02/2021 Hgb 13 * anemia panel iron 50, TIBC 182, % sat 29, Transferrin 129, Ferritin 192, B12 267, Folate 4.3 * Continue ferrous sulfate 325mg PO Daily * Start B12 supplement 2500 mcg daily as patient has +anemia and c/o neuropathy * check stool for occult
--- NOTE | 2022-02-04 17:21 | PM.IMPN ---
Progress Note: A&P Assessment and Plan (1) Pulmonary embolism: Code(s): I26.99 - Other pulmonary embolism without acute cor pulmonale Status: Acute Assessment and Plan: CTA found pulmonary embolism, with small clot thrombus burden Lovenox BID 55mg, currently on hold for biopsy x 24 hours. 02/05/22 start Eliquis 10 mg PO BID x 7 days, then 5 mg BID for 3-6 months or until stopped. 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 Continues to be on room air Echo EF of 75% with diastolic dysfunction, mild pulmonary hypertension. Monitor respiratory status. (2) Pulmonary nodules/lesions, multiple: Code(s): R91.8 - Other nonspecific abnormal finding of lung field Status: Acute Assessment and Plan: CTA chest with left lower lobe nodule measuring 2.8 x 2 cm, compatible with bronchogenic carcinoma or metastatic disease; muultiple additional smaller nodules present in the upper lobes; abnormal conglomerate soft tissue involving the left hilum and infrahilar locations as well as the mediastinum, consistent with metastatic disease, soft tissue involving the left pulmonary vein, likely tumor invasion; encasement with occlusion of the left lower lobe bronchus and narrowing of the left lower lobe pulmonary artery. Oncology consulted and appreciate recommendations. CA 19-9 pending, carcinogenic antigen elevated 19.1, and CA-125 elevated 93 02/03/22 s/p lung biopsy, follow-up chest x-ray negative for pneumothorax. (3) Pneumonia: Qualifiers: Pneumonia type: due to unspecified organism Laterality: left Lung location: lower lobe of lung Qualified Code(s): J18.9 - Pneumonia, unspecified organism Code(s): J18.9 - Pneumonia, unspecified organism Status: Acute Assessment and Plan: Chest xray left lower lobe patchy opacities concerning for pneumonia, no leukocytosis presumed postobstructive pneumonia. Received Azithromycin 01/29 to 02/01/22, Rocephin 1 gram Q24H 01/29-01/30 and transitioned to cefdinir 300 mg BID PO 01/31 to 02/05 COVID was negative Xopenex Q6 hours sputum culture not collected at this time. Supplemental oxygen, titrate to maintain SPO2 >90%, wean as tolerated. (4) Orthostatic hypotension: Code(s): I95.1 - Orthostatic hypotension Status: Acute Assessment and Plan: Patient is positives for orthostatic hypotension 01/31/22, presumed autonomic dysfunction Continue midodrine 5mg PO TID Carotid US negative Trend BP Adjust therapy as indicated (5) Hypokalemia: Code(s): E87.6 - Hypokalemia Status: Acute Assessment and Plan: K2.8 today 02/04. She has recieved multiple doses of PO KCl Telemetry ordered but unavailable. EKG without u-waves or peaked t-waves Given 40 mEQ PO x1 and KCl 40 mEQ IVPB x1. Repeat K 4.0 at 1500 Magnesium level 2.2 ?related to sodium bicarb supplements. (6) Anemia: Qualifiers: Anemia type: B12 deficiency Code(s): D64.9 - Anemia, unspecified Status: Acute Assessment and Plan: Multifactorial, B12 low and +metastatic disease. H/H 8.02/04.3, baseline Hgb 8-9 mg/dL this admission, 02/2021 Hgb 13 anemia panel iron 50, TIBC 182, % sat 29, Transferrin 129, Ferritin 192, B12 267, Folate 4.3 Continue ferrous sulfate 325mg PO Daily Start B12 supplement 2500 mcg daily as patient has +anemia and c/o neuropathy check stool for occult blood (7) COPD (chronic obstructive pulmonary disease): Qualifiers: COPD type: COPD with acute exacerbation Qualified Code(s): J44.1 - Chronic obstructive pulmonary disease with (acute) exacerbation Code(s): J44.9 - Chronic obstructive pulmonary disease, unspecified Status: Chronic Assessment and Plan: Acute exacerbation of chronic disease. Chest xray indicated COPD. +O2 supplement needs on admission continue x
[2022-02-04] MEDS: SENNOSIDES 8.6 MG TABLET PO (20:28)
[2022-02-04] MEDS: MIRTAZAPINE 15 MG TABLET PO (20:28)
[2022-02-04] MEDS: ALPRAZolam (*CRX) 0.25 MG TABLET PO (20:29)
[2022-02-05 05:32] LABS: Anion Gap 5 mmol/L (8-16); Blood Urea Nitrogen 7 mg/dL (7-17); Calcium 8.4 mg/dL (8.4-10.2); Carbon Dioxide 24 mmol/L (22-30); Chloride 105 mmol/L (98-107); Estimated CRCL calculation 76 ml/min; Estimated Glomerular Filt Rate > 60; Glucose 88 mg/dL (65-110); Potassium 3.8 mmol/L (3.4-5.0); Sodium 134 mmol/L (137-145)
[2022-02-05 05:39] LABS: Hematocrit 29.4 % (37.0-47.0); Hemoglobin 9.3 g/dL (12.0-15.0); Mean Corpuscular HGB Conc 31.6 g/dl (32-36); Mean Corpuscular Hemoglobin 27.4 pg (26-34); Mean Corpuscular Volume 86.7 fl (80-100); Mean Platelet Volume 10.9 fl (7.4-10.4); Platelet Count Result 242 k/mm3 (150-375); Red Blood Count 3.39 M/mm3 (4.2-5.4); Red Cell Distribution Width 17.4 % (11.5-14.5); White Blood Count 6.1 K/mm3 (4.5-10.0)
[2022-02-05 06:00] VITALS: BP 114/65; PULSE 83; RESP 22; TEMP 36.6; O2SAT 99
[2022-02-05 08:03] VITALS: PULSE 79; RESP 18
[2022-02-05] MEDS: CYANOCOBALAMIN TAB 2,000 MCG, CYANOCOBALAMIN TAB 500 MCG 2500 MCG PO (09:32)
[2022-02-05] MEDS: CARBIDOPA/LEVODOPA 25/100 MG TABLET 1 TABLET PO ×4 (09:33→21:06)
[2022-02-05] MEDS: DICYCLOMINE HCL 10 MG CAPSULE PO ×2 (09:33→17:28)
[2022-02-05] MEDS: ALPRAZolam (*CRX) 0.25 MG TABLET PO (09:36)
[2022-02-05] MEDS: APIXABAN 5 MG TABLET 10 MG PO ×2 (09:36→21:05)
[2022-02-05] MEDS: LORATADINE 10 MG TABLET PO ×2 (09:36→21:06)
[2022-02-05] MEDS: ESCITALOPRAM OXALATE 5 MG TABLET PO (09:36)
[2022-02-05] MEDS: SODIUM BICARBONATE TAB 650 MG TABLET PO ×2 (09:36→17:27)
[2022-02-05] MEDS: PANTOPRAZOLE 40 MG TABLET PO (09:37)
[2022-02-05] MEDS: FERROUS SULFATE 324 MG TABLET PO (09:37)
[2022-02-05] MEDS: FLUTICASONE PROPIONATE 0.05% NA SPR 16 GM BTL (*BKC) 2 SPRAY NASAL (09:37)
[2022-02-05 14:00] VITALS: BP 105/45; PULSE 80; RESP 18; TEMP 36.8; O2SAT 99
[2022-02-05 14:26] LABS: EDCOVIDSCREEN Negative (Negative)
--- NOTE | 2022-02-05 14:37 | PCNSR ---
On 02/05/22, the student, Anibal Madison, provided care and completed [employer] documentation on this patient. I have reviewed the student's documentation and agree with the findings.
--- NOTE | 2022-02-05 15:13 | P.PNIM_ITS ---
Progress Note: A&P Assessment and Plan (1) Pulmonary embolism: Code(s): I26.99 - Other pulmonary embolism without acute cor pulmonale Status: Acute Assessment and Plan: * CTA found pulmonary embolism, with small clot thrombus burden * Lovenox BID 55mg, currently on hold for biopsy x 24 hours. * 02/05/22 start Eliquis 10 mg PO BID x 7 days, then 5 mg BID for 3-6 months or until stopped. 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 * Continues to be on room air * Echo EF of 75% with diastolic dysfunction, mild pulmonary hypertension. * Monitor respiratory status. * 02/05/22 Desats 84% on room air with ambulation. Patient will need supplemental O2 titrated to keep sats>92% with activity at discharge. (2) Pulmonary nodules/lesions, multiple: Code(s): R91.8 - Other nonspecific abnormal finding of lung field Status: Acute Assessment and Plan: * CTA chest with left lower lobe nodule measuring 2.8 x 2 cm, compatible with bronchogenic carcinoma or metastatic disease; muultiple additional smaller nodules present in the upper lobes; abnormal conglomerate soft tissue involving the left hilum and infrahilar locations as well as the mediastinum, consistent with metastatic disease, soft tissue involving the left pulmonary vein, likely tumor invasion; encasement with occlusion of the left lower lobe bronchus and narrowing of the left lower lobe pulmonary artery. * Oncology consulted and appreciate recommendations. * CA 19-9 pending, carcinogenic antigen elevated 19.1, and CA-125 elevated 93 * 02/03/22 s/p lung biopsy, follow-up chest x-ray negative for pneumothorax. 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 Oncology to see patient today to discuss treatment. (3) Pneumonia: Qualifiers: Laterality: left Lung location: lower lobe of lung Pneumonia type: due to unspecified organism Qualified Code(s): J18.9 - Pneumonia, unspecified organism Code(s): J18.9 - Pneumonia, unspecified organism Status: Acute Assessment and Plan: * Chest xray left lower lobe patchy opacities concerning for pneumonia, no leukocytosis * presumed postobstructive pneumonia. * Received Azithromycin 01/29 to 02/01/22, Rocephin 1 gram Q24H 01/29-01/30 and transitioned to cefdinir 300 mg BID PO 01/31 to 02/05 * COVID was negative * Xopenex Q6 hours * sputum culture not collected at this time. * Supplemental oxygen, titrate to maintain SPO2 >90%, wean as tolerated. * 02/05/22 - stable. No hemoptysis or sputum. Completed abx x7 days. (4) Orthostatic hypotension: Code(s): I95.1 - Orthostatic hypotension Status: Acute Assessment and Plan: * Patient is positives for orthostatic hypotension 01/31/22, presumed autonomic dysfunction * Continue midodrine 5mg PO TID * Carotid US negative * Trend BP * Adjust therapy as indicated * stable. (5) Hypokalemia: Code(s): E87.6 - Hypokalemia Status: Acute Assessment and Plan: K2.8 today 02/04. She has recieved multiple doses of PO KCl * Telemetry ordered but unavailable. EKG without u-waves or peaked t-waves * Given 40 mEQ PO x1 and KCl 40 mEQ IVPB x1. * Repeat K 4.0 at 1500 * Magnesium level 2.2 * ?related to sodium bicarb supplements. * 02/05/22 bicarb 24, sodium 134, K 3.8. Repeat labs in am. (6) Anemia: Qualifiers: Anemia type: B12 deficiency Vitamin B12 deficiency anemia type: unspecified B12 deficiency Qualified Cod
--- NOTE | 2022-02-05 15:13 | PM.IMPN ---
Progress Note: A&P Assessment and Plan (1) Pulmonary embolism: Code(s): I26.99 - Other pulmonary embolism without acute cor pulmonale Status: Acute Assessment and Plan: CTA found pulmonary embolism, with small clot thrombus burden Lovenox BID 55mg, currently on hold for biopsy x 24 hours. 02/05/22 start Eliquis 10 mg PO BID x 7 days, then 5 mg BID for 3-6 months or until stopped. 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 Continues to be on room air Echo EF of 75% with diastolic dysfunction, mild pulmonary hypertension. Monitor respiratory status. 02/05/22 Desats 84% on room air with ambulation. Patient will need supplemental O2 titrated to keep sats>92% with activity at discharge. (2) Pulmonary nodules/lesions, multiple: Code(s): R91.8 - Other nonspecific abnormal finding of lung field Status: Acute Assessment and Plan: CTA chest with left lower lobe nodule measuring 2.8 x 2 cm, compatible with bronchogenic carcinoma or metastatic disease; muultiple additional smaller nodules present in the upper lobes; abnormal conglomerate soft tissue involving the left hilum and infrahilar locations as well as the mediastinum, consistent with metastatic disease, soft tissue involving the left pulmonary vein, likely tumor invasion; encasement with occlusion of the left lower lobe bronchus and narrowing of the left lower lobe pulmonary artery. Oncology consulted and appreciate recommendations. CA 19-9 pending, carcinogenic antigen elevated 19.1, and CA-125 elevated 93 02/03/22 s/p lung biopsy, follow-up chest x-ray negative for pneumothorax. 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 Oncology to see patient today to discuss treatment. (3) Pneumonia: Qualifiers: Laterality: left Lung location: lower lobe of lung Pneumonia type: due to unspecified organism Qualified Code(s): J18.9 - Pneumonia, unspecified organism Code(s): J18.9 - Pneumonia, unspecified organism Status: Acute Assessment and Plan: Chest xray left lower lobe patchy opacities concerning for pneumonia, no leukocytosis presumed postobstructive pneumonia. Received Azithromycin 01/29 to 02/01/22, Rocephin 1 gram Q24H 01/29-01/30 and transitioned to cefdinir 300 mg BID PO 01/31 to 02/05 COVID was negative Xopenex Q6 hours sputum culture not collected at this time. Supplemental oxygen, titrate to maintain SPO2 >90%, wean as tolerated. 02/05/22 - stable. No hemoptysis or sputum. Completed abx x7 days. (4) Orthostatic hypotension: Code(s): I95.1 - Orthostatic hypotension Status: Acute Assessment and Plan: Patient is positives for orthostatic hypotension 01/31/22, presumed autonomic dysfunction Continue midodrine 5mg PO TID Carotid US negative Trend BP Adjust therapy as indicated stable. (5) Hypokalemia: Code(s): E87.6 - Hypokalemia Status: Acute Assessment and Plan: K2.8 today 02/04. She has recieved multiple doses of PO KCl Telemetry ordered but unavailable. EKG without u-waves or peaked t-waves Given 40 mEQ PO x1 and KCl 40 mEQ IVPB x1. Repeat K 4.0 at 1500 Magnesium level 2.2 ?related to sodium bicarb supplements. 02/05/22 bicarb 24, sodium 134, K 3.8. Repeat labs in am. (6) Anemia: Qualifiers: Anemia type: B12 deficiency Vitamin B12 deficiency anemia type: unspecified B12 deficiency Qualified Code(s): D51.9 - Vitamin B12 deficiency anemia, unspecified Code(s): D64.9 - Anemia, unspecified Status: Acute Assessment and Plan: Multifactorial, B12 low and +metastatic disease. H/H 8.9/28.3, baseline Hgb 8-9 mg/dL this admission, 02/2021 Hgb 13 anemia panel iron 50, TIBC 182, % sat 29, Transferrin 129, Ferritin 192, B12 267, Folate 4.3 Continue ferrous sulfate 325mg PO Daily Start B12 supplement 2500 mcg daily as patient h
--- NOTE | 2022-02-05 18:13 | P.PNONC_ITS ---
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 Previously CTA chest showed 2.8 x 2 cm left lower lobe pulmonary nodule compatible with bronchogenic carcinoma with multiple small additional nodules are present in the upper lobe. I have discuss pathology report with patient. I have provided her my office information for follow-up. I would recommend PET scan and brain imaging as an outpatient. She will discuss with her end user support specialist and follow-up with me in the office for further management of lung cancer. Pulmonary embolism. Patient will continue Eliquis. Normocytic anemia. Workup showed normal kidney function, normal reticulocyte count and normal LDH. Iron studies were also normal other than low TIBC. B12 level was quite low. This is consistent with anemia of chronic disease and inflammation. Possibility of bone marrow disorder also exist. I will order vitamin B12 injection and then oral B12 replacement on discharge. Follow-up in the office - Time Spent With Patient Total time spent is greater than 50% in coordination of care (as documented) at patient's floor/unit and/or counseling patient: 25 - 35 minutes Subjective Interval history: Small cell lung cancer status post CT-guided biopsy of the left lung on February 03, 2022 Review of Systems - Review of Systems Patient is feeling well. Denies any chest pain and shortness of breath. She has some right up lower quadrant abdominal pain. No bleeding and bruising. No bone pain and no headaches. No other new complaints. - Neurologic Reports system reviewed and no additional complaints, except as documented, Reports hearing normal Exam Vital signs: Temp Pulse Resp BP Pulse Ox O2 Del Method 36.8 C 80 18 105/45 L 99 Room Air 02/05/22 14:00 02/05/22 14:00 02/05/22 14:02/05/22 14:02/05/22 14:00 02/05/22 09:40 Narrative: Lungs are clear to auscultation bilaterally Cardiovascular regular rate rhythm no murmurs Abdomen soft nontender nondistended bowel sounds are positive Extremities no edema PN: Objective Data - Labs CBC & Chem 7: 02/05/22 05:06 02/05/22 05:06 Labs: Laboratory Results - last 24 hr 02/05/22 02/05/22 02/05/22 05:06 05:06 14:05 WBC 6.1 RBC 3.39 L Hgb 9.3 L Hct 29.4 L MCV 86.7 MCH 27.4 MCHC 31.6 L RDW 17.4 H Plt Count 242 MPV 10.9 H Sodium 134 L Potassium 3.8 Chloride 105 Carbon Dioxide 24 Anion Gap 5 L BUN 7 Creatinine 0.40 L Estim Creat Clear Calc 76 Estimated GFR > 60 Glucose 88 Calcium 8.4 SARS-CoV-2 IgG/IgM Ag?Rapid Negative
[2022-02-05] MEDS: CYANOCOBALAMIN INJ 1,000 MCG/ML VIAL 1000 MCG IM (21:06)
[2022-02-05] MEDS: MIRTAZAPINE 15 MG TABLET PO (21:06)
[2022-02-05 21:15] VITALS: PULSE 77; RESP 18
[2022-02-05 21:30] VITALS: PULSE 79; RESP 18
[2022-02-05 22:00] VITALS: BP 99/51; PULSE 76; RESP 20; TEMP 36.7; O2SAT 99
[2022-02-06 06:00] VITALS: BP 92/54; PULSE 82; RESP 22; TEMP 36.6; O2SAT 99
[2022-02-06 06:04] LABS: Hematocrit 28.6 % (37.0-47.0); Hemoglobin 9.2 g/dL (12.0-15.0); Mean Corpuscular HGB Conc 32.2 g/dl (32-36); Mean Corpuscular Hemoglobin 27.2 pg (26-34); Mean Corpuscular Volume 84.6 fl (80-100); Mean Platelet Volume 9.9 fl (7.4-10.4); Platelet Count Result 235 k/mm3 (150-375); Red Blood Count 3.38 M/mm3 (4.2-5.4); Red Cell Distribution Width 17.2 % (11.5-14.5); White Blood Count 5.6 K/mm3 (4.5-10.0)
[2022-02-06 06:20] LABS: Anion Gap 5 mmol/L (8-16); Blood Urea Nitrogen 7 mg/dL (7-17); Calcium 8.3 mg/dL (8.4-10.2); Carbon Dioxide 25 mmol/L (22-30); Chloride 104 mmol/L (98-107); Estimated CRCL calculation 62 ml/min; Estimated Glomerular Filt Rate > 60; Glucose 99 mg/dL (65-110); Potassium 3.3 mmol/L (3.4-5.0); Sodium 134 mmol/L (137-145)
[2022-02-06] MEDS: FLUTICASONE PROPIONATE 0.05% NA SPR 16 GM BTL (*BKC) 2 SPRAY NASAL (09:13)
[2022-02-06] MEDS: SODIUM BICARBONATE TAB 650 MG TABLET PO (09:14)
[2022-02-06] MEDS: PANTOPRAZOLE 40 MG TABLET PO (09:14)
[2022-02-06] MEDS: CYANOCOBALAMIN 1,000 MCG TABLET 1000 MCG PO (09:14)
[2022-02-06] MEDS: FERROUS SULFATE 324 MG TABLET PO (09:14)
[2022-02-06] MEDS: ESCITALOPRAM OXALATE 10 MG TABLET PO (09:14)
[2022-02-06] MEDS: DICYCLOMINE HCL 10 MG CAPSULE PO (09:14)
[2022-02-06] MEDS: APIXABAN 5 MG TABLET 10 MG PO (09:14)
[2022-02-06] MEDS: CARBIDOPA/LEVODOPA 25/100 MG TABLET 1 TABLET PO ×2 (09:14→13:24)
[2022-02-06] MEDS: LORATADINE 10 MG TABLET PO (09:14)
[2022-02-06] MEDS: ALPRAZolam (*CRX) 0.25 MG TABLET PO ×2 (09:16→14:28)
--- NOTE | 2022-02-06 11:26 | P.DS_ITS ---
DS: Admitting Diagnosis Discharge Date 02/06/2022 1320 Admitting Diagnosis Pneumonia Acute COPD exacerbation Anemia, unspecified Depression, chronic Anxiety, chronic Parkinson Disease, chronic DS: Discharge Diagnosis Discharge Diagnosis (1) Pulmonary embolism: Code(s): I26.99 - Other pulmonary embolism without acute cor pulmonale Status: Acute Assessment and Plan: * CTA found pulmonary embolism, with small clot thrombus burden * Lovenox BID 55mg, currently on hold for biopsy x 24 hours. * 02/05/22 start Eliquis 10 mg PO BID x 7 days, then 5 mg BID for 3-6 months or until stopped. 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 * Continues to be on room air * Echo EF of 75% with diastolic dysfunction, mild pulmonary hypertension. * Monitor respiratory status. * 02/05/22 Desats 84% on room air with ambulation. Patient will need supplemental O2 titrated to keep sats>92% with activity at discharge. (2) Small cell carcinoma: Code(s): C80.1 - Malignant (primary) neoplasm, unspecified Status: Acute Assessment and Plan: * CTA chest with left lower lobe nodule measuring 2.8 x 2 cm, compatible with bronchogenic carcinoma or metastatic disease; muultiple additional smaller nodules present in the upper lobes; abnormal conglomerate soft tissue involving the left hilum and infrahilar locations as well as the mediastinum, consistent with metastatic disease, soft tissue involving the left pulmonary vein, likely tumor invasion; encasement with occlusion of the left lower lobe bronchus and narrowing of the left lower lobe pulmonary artery. * Oncology consulted and appreciate recommendations. * CA 19-9 pending, carcinogenic antigen elevated 19.1, and CA-125 elevated 93 * 02/03/22 s/p lung biopsy, follow-up chest x-ray negative for pneumothorax. 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 Oncology to see patient today to discuss treatment. (3) Pneumonia: Qualifiers: Laterality: left Lung location: lower lobe of lung Pneumonia type: due to unspecified organism Qualified Code(s): J18.9 - Pneumonia, unspecified organism Code(s): J18.9 - Pneumonia, unspecified organism Status: Acute Assessment and Plan: * Chest xray left lower lobe patchy opacities concerning for pneumonia, no leukocytosis * presumed postobstructive pneumonia. * Received Azithromycin 9/22 to 02/01/22, Rocephin 1 gram Q24H 01/29-01/30 and transitioned to cefdinir 300 mg BID PO 01/31 to 02/05 * COVID was negative * Xopenex Q6 hours * sputum culture not collected at this time. * Supplemental oxygen, titrate to maintain SPO2 >90%, wean as tolerated. * 02/05/22 - stable. No hemoptysis or sputum. Completed abx x7 days. (4) Orthostatic hypotension: Code(s): I95.1 - Orthostatic hypotension Status: Acute Assessment and Plan: * Patient is positives for orthostatic hypotension 01/31/22, presumed autonomic dysfunction * Carotid US negative * stable. (5) Hypokalemia: Code(s): E87.6 - Hypokalemia Status: Acute Assessment and Plan: K2.8 today 02/04. She has recieved multiple doses of PO KCl * Telemetry ordered but unavailable. EKG without u-waves or peaked t-waves * Given 40 mEQ PO x1 and KCl 40 mEQ IVPB x1. * Repeat K 4.0 at 1500 * Magnesium level 2.2 * ?related to sodium bicarb supplements. * 02/05/22 bicarb 24, sodium 134, K 3.8. (6) Anemia: Qualifiers:
--- NOTE | 2022-02-06 11:26 | PM.DS ---
DS: Admitting Diagnosis Discharge Date 02/06/2022 1320 Admitting Diagnosis Pneumonia Acute COPD exacerbation Anemia, unspecified Depression, chronic Anxiety, chronic Parkinson Disease, chronic DS: Discharge Diagnosis Discharge Diagnosis (1) Pulmonary embolism: Code(s): I26.99 - Other pulmonary embolism without acute cor pulmonale Status: Acute Assessment and Plan: CTA found pulmonary embolism, with small clot thrombus burden Lovenox BID 55mg, currently on hold for biopsy x 24 hours. 02/05/22 start Eliquis 10 mg PO BID x 7 days, then 5 mg BID for 3-6 months or until stopped. 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 Continues to be on room air Echo EF of 75% with diastolic dysfunction, mild pulmonary hypertension. Monitor respiratory status. 02/05/22 Desats 84% on room air with ambulation. Patient will need supplemental O2 titrated to keep sats>92% with activity at discharge. (2) Small cell carcinoma: Code(s): C80.1 - Malignant (primary) neoplasm, unspecified Status: Acute Assessment and Plan: CTA chest with left lower lobe nodule measuring 2.8 x 2 cm, compatible with bronchogenic carcinoma or metastatic disease; muultiple additional smaller nodules present in the upper lobes; abnormal conglomerate soft tissue involving the left hilum and infrahilar locations as well as the mediastinum, consistent with metastatic disease, soft tissue involving the left pulmonary vein, likely tumor invasion; encasement with occlusion of the left lower lobe bronchus and narrowing of the left lower lobe pulmonary artery. Oncology consulted and appreciate recommendations. CA 19-9 pending, carcinogenic antigen elevated 19.1, and CA-125 elevated 93 02/03/22 s/p lung biopsy, follow-up chest x-ray negative for pneumothorax. 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 Oncology to see patient today to discuss treatment. (3) Pneumonia: Qualifiers: Laterality: left Lung location: lower lobe of lung Pneumonia type: due to unspecified organism Qualified Code(s): J18.9 - Pneumonia, unspecified organism Code(s): J18.9 - Pneumonia, unspecified organism Status: Acute Assessment and Plan: Chest xray left lower lobe patchy opacities concerning for pneumonia, no leukocytosis presumed postobstructive pneumonia. Received Azithromycin 01/29 to 02/01/22, Rocephin 1 gram Q24H 01/29-01/30 and transitioned to cefdinir 300 mg BID PO 01/31 to 02/05 COVID was negative Xopenex Q6 hours sputum culture not collected at this time. Supplemental oxygen, titrate to maintain SPO2 >90%, wean as tolerated. 02/05/22 - stable. No hemoptysis or sputum. Completed abx x7 days. (4) Orthostatic hypotension: Code(s): I95.1 - Orthostatic hypotension Status: Acute Assessment and Plan: Patient is positives for orthostatic hypotension 01/31/22, presumed autonomic dysfunction Carotid US negative stable. (5) Hypokalemia: Code(s): E87.6 - Hypokalemia Status: Acute Assessment and Plan: K2.8 today 02/04. She has recieved multiple doses of PO KCl Telemetry ordered but unavailable. EKG without u-waves or peaked t-waves Given 40 mEQ PO x1 and KCl 40 mEQ IVPB x1. Repeat K 4.0 at 1500 Magnesium level 2.2 ?related to sodium bicarb supplements. 02/05/22 bicarb 24, sodium 134, K 3.8. (6) Anemia: Qualifiers: Anemia type: B12 deficiency Vitamin B12 deficiency anemia type: unspecified B12 deficiency Qualified Code(s): D51.9 - Vitamin B12 deficiency anemia, unspecified Code(s): D64.9 - Anemia, unspecified Status: Acute Assessment and Plan: Multifactorial, B12 low and +metastatic disease. H/H 8.9/28.3, baseline Hgb 8-9 mg/dL this admission, 02/2021 Hgb 13 anemia panel iron 50, TIBC 182, % sat 29, Transferrin 129, Ferritin 192, B12 267, [place]
[2022-02-06] MEDS: POTASSIUM CHLORIDE 20 MEQ TABLET.ER PO (13:24)
[2022-02-06 13:28] LABS: EDCOVIDSCREEN Negative (Negative)
[2022-02-06 14:00] VITALS: BP 96/54; PULSE 81; RESP 20; TEMP 36.7; O2SAT 98
[2022-02-07 09:50] LABS: CA 19-9 <3 U/mL (<34)
== END 2022-02-06 15:00 | DRG 180 ==
LOC: ANHED 12:22 → ANH3MED 14:40
PROVIDERS: Internal Medicine Hematology & Oncology; Nurse Practitioner; Admitting Provider Chiropractor; Emergency Provider Emergency Medicine; PCP Physician Assistant; Visit Provider Nurse Practitioner Family
DX: C34.92 Malignant neoplasm of unspecified part of left bronchus or lung (principal); E43 Unspecified severe protein-calorie malnutrition; I26.99 Other pulmonary embolism without acute cor pulmonale; J18.9 Pneumonia, unspecified organism; J44.0 Chronic obstructive pulmonary disease with (acute) lower respiratory infection; J44.1 Chronic obstructive pulmonary disease with (acute) exacerbation; C78.1 Secondary malignant neoplasm of mediastinum; D51.9 Vitamin B12 deficiency anemia, unspecified; G20 Parkinson's disease; R91.8 Other nonspecific abnormal finding of lung field; I95.1 Orthostatic hypotension; E87.6 Hypokalemia; I27.20 Pulmonary hypertension, unspecified; F32.A Depression, unspecified; F41.9 Anxiety disorder, unspecified; D63.8 Anemia in other chronic diseases classified elsewhere; K59.00 Constipation, unspecified; R63.4 Abnormal weight loss; I51.89 Other ill-defined heart diseases; G62.9 Polyneuropathy, unspecified; Z68.20 Body mass index [BMI] 20.0-20.9, adult; Z87.891 Personal history of nicotine dependence; Z20.822 Contact with and (suspected) exposure to COVID-19; Z90.710 Acquired absence of both cervix and uterus; Z98.49 Cataract extraction status, unspecified eye
CPT/HCPCS: 32408; 36415; 71045; 71046; 71275; 80048; 80053; 82378; 82570; 82607; 82728; 82746; 83540; 83550; 83605; 83615; 83735; 83880; 84132; 84155; 84156; 84165; 84166; 84443; 84466; 84484; 85025; 85027; 85046; 85610; 85730; 86140; 86301; 86304; 86880; 87426; 88305; 88342; 93005; 93306; 93880; 93970; 94640; 97110; 97162; 97165; 97530; 97535; 99285; A9270; C9803; J0456; J0696; J1650; J2920; J3420; J3480; J7040; J7512; Q9967; U0003; U0005